=== PATIENT | female | born 1935 | race Caucasian/White ===

== ENCOUNTER 2016-11-09 04:55 | Inpatient (IN) | payer MEDICARE, OTHER ==
[~2016-11-09] VITALS: Ht 154.9 cm; Wt 70.2 kg
[2016-11-09] VITALS (13 sets, daily range): BP systolic 130–197; BP diastolic 51–86; PULSE 49–89; RESP 16–20; O2SAT 98–99
[~2016-11-09 04:55] MED LIST: ASPI81TA3 PO; ATOR40TA69 PO; HYDR25TA4 PO; LISI-571 PO; METO25TA99 PO; NITR0.4T SL; WARF5TAB7 PO
--- NOTE | 2016-11-09 05:04 | ED.REPORT ---
HPI-Chest Pain 40 and Over Date of Service Nov 09, 2016 ED Provider: Jose A Rivas MD Pt is a 81 year old female with a history of HTN, hyperlipidemia, and MS who presents to the ED via EMS complaining of intermittent chest pain onset 2 weeks ago. She c/o associated jaw pain, left arm pain, and sensation to a fast heart beat. She denies any other symptoms. The pt was provided 324 mg of aspirin and 2 sprays of nitro en route with relief. The pt reports that she is currently pain free. Per EMS, the pt's blood pressure was 220/110 on their arrival to her house. Nursing Notes Stated Complaint: CHEST PAIN Chief Complaint: Chest Pain Nursing Notes Reviewed: Yes Allergies: Coded Allergies: wool (Verified Allergy, Mild, rash, 11/09/16) Penicillins (Verified Allergy, Unknown, Rash, 11/09/16) clopidogrel bisulfate (Verified Allergy, Unknown, Diarrhea, 11/09/16) ezetimibe (Verified Allergy, Unknown, Diarrhea, 11/09/16) rosuvastatin calcium (Verified Allergy, Unknown, Diarrhea, 11/09/16) Uncoded Allergies: HYPERTENSION MEDS (Allergy, Unknown, 07/02/15) Scheduled Aspirin Chew (Aspirin Chew) 81 Mg Chew 81 MG PO DAILY Atorvastatin Calcium (Atorvastatin Calcium) 40 Mg Tablet 80 MG PO HS Lisinopril (Lisinopril) 5 Mg Tablet 2.5 MG PO DAILY Metoprolol Succinate ER (Metoprolol Succinate ER) 25 Mg Tab.er.24h 25 MG PO DAILY Warfarin Sodium (Warfarin Sodium) 5 Mg Tablet 5 MG PO DAILY Scheduled PRN Hydrochlorothiazide (Hydrochlorothiazide) 25 Mg Tablet 25 MG PO 3x/week PRN PRN Swelling of hands and feet Nitroglycerin SL (Nitrostat) 0.4 Mg Tab.subl 0.4 MG SL Q5MIN PRN PRN For Chest Pain General Time Seen by MD: 05:01 Chief Complaint Chest pain Hx Obtained From: Patient, EMS Arrived By: Ambulance Sudden in Onset?: No Onset Occurred: More than a week ago... (2 weeks) Symptom Duration: Intermittent Location: : Substernal Quality: Painful Radiation: : Does not radiate Severity: Current: No pain currently Severity: Maximum: Moderate Recent Healthcare: No recent doctor visit Similar Sx Previous: Yes Past Medical History Past Medical History 1. She is on Coumadin for CVA. Apparently, she does have some carotid artery stenosis. 2. She has had rectal bleeding and constipation in the past. 3. She has had previous flares of back pain. 4. AAA, which is being followed. 5. Osteoarthritis. 6. MS Reports: GERD, Hyperlipidemia, Hypertension Past Surgical History Oral Smoking History Current Every Day Smoker Social History Alcohol Use: "Social" Drug Use: Denies drug use Ambulatory Status Independent Review of Systems + Sensation to fast heart beat + jaw pain Constitutional: Denies: Fever Respiratory: Denies: Non-productive cough, Shortness of breath Cardiovascular: Reports: Chest pain Musculoskeletal: Reports: Extremity pain Complete sys rev & neg: except as marked. Physical Exam Initial Vital Signs Vital Signs (First) Date Time Temp Pulse Resp B/P Pulse Ox O2 Delivery O2 Flow Rate FiO2 11/09/16 04:57 37.0 68 20 130/59 98 Room Air Initial VS: Reviewed, Vital signs normal Head / Eyes: Atraumatic, Normocephalic Neck: Supple, Full range of motion Extremities: Vascular intact, Neuro intact Skin: Warm, Dry, No cyanosis Neurologic: Alert, Oriented, Nonfocal Psychiatric: Mood/affect normal, Behavior normal General/Constitutional: Awake, Alert Respiratory / Chest: Atraumatic, Breath sounds NL, Breath sounds = bilat Cardiovascular: Heart rate NL, Regular rhythm, Heart sounds NL Bilateral pitting edema Abdomen: Atraumatic, Soft Neck: Atraumatic, Full range of motion Bilateral carotid bruit - worse on right than left. Interpretation & Diagnostics Lab Results Interpretation Result Diagram: 11/09/16 0500 11/09/16 0500 Test 11/09/16 05:00 White Blood Count 7.1th/mm3 (3.8-10.1) Red Blood Count 3.24mil/mm3 (3.90-5.20) Hemoglobin 7.0g/dL (12.0-15.6) Hematocrit 23.3% (35.0-46.0) Mean Corpuscular Volume 71.9fL (81-100) Mean Corpuscular Hemoglobin 21.6pg (27.0-35.0) Mean Corpuscular Hemoglobin Concent 30.0% (32.0-37.0) Red Cell Distribution Width 16.7% (12.3-15.4) Platelet Count 356bil/L (150-400) Neutrophils (%) (Auto) 50.2% (40-74) Lymphocytes (%) (Auto) 37.6% (14-46) Monocytes (%) (Auto) 9.3% (4-12) Eosinophils (%) (Auto) 2.1% (0-5) Basophils (%) (Auto) 0.7% (0-3) Prothrombin Time 46.2sec (8.1-12.5) Prothromb Time International Ratio 4.19ratio Sodium Level 141mEq/L (134-144) Potassium Level 4.3mEq/L (3.5-5.2) Chloride Level 107mEq/L (97-108) Carbon Dioxide Level 16mmol/L (18-29) Blood Urea Nitrogen 21mg/dL (8-27) Creatinine 0.91mg/dL (0.57-1.00) Estimat Glomerular Filtration Rate 85mL/min (>59) Glucose Level 104mg/dL (60-99) Calcium Level 8.7mg/dL (8.5-10.1) Magnesium Level 2.1mg/dL (1.6-2.6) Total Bilirubin 0.5mg/dL (0.0-1.2) Aspartate Amino Transf (AST/SGOT) 11U/L (0-50) Alanine Aminotransferase (ALT/SGPT) 7U/L (0-32) Alkaline Phosphatase 109U/L (25-165) Troponin T 0.010ug/L (0.0-0.011) Total Protein 6.2g/dL (6.4-8.4) Albumin 3.9g/dL (3.4-5.0) ECG Interpretation ECG Interpretation: Sinus rhythm with a rate of 67 Time: 05:04 Interpreted by: ED physician X-Ray Chest Interpretation Chest Xray Interpretation: Normal View: Portable, 1 view Interpretation / Wet Read by: Wet read ED physician Re-Eval/Medical Decision Med Decision/Clinical Course 81-year-old female with a history of palpitations and chest discomfort with radiation up into her jaw and teeth. This has subsequently resolved with nitroglycerin. ER workup for chest pain is in process. The patient will be turned over at change of shift to the day doctor. Source of Hx: Old records Counseled Regarding: Diagnosis, Lab results Discharge & Departure Shift Change Sign-Out Patient Care Transferred: Yes Discussed Complaint(s): Yes Laboratory Evaluation: Lab evaluation discussed Discharge Condition All VS Reviewed: Yes Condition: Stable Referrals: Aliza Garcia MD (PCP) Care Transferred to: Dr. Sanchez Care Transferred at: 06:00 Scribe Attestation Portions of this note were transcribed by Iza Painting. I, Dr. Rivas personally performed the history, physical exam and medical decision-making; I reviewed and confirmed the accuracy of the information in the transcribed note. Signed by: Kimberli Calvo, 11/09/16. copies to: Aliza Garcia MD, Howard L MD Nov 09, 2016 05:04 Iza Bartholomew Nov 09, 2016 05:35
[2016-11-09 05:13] LABS: BASOPHILS % (AUTO) 0.7 % (0-3); EOSINOPHILS % (AUTO) 2.1 % (0-5); MONOCYTES % (AUTO) 9.3 % (4-12); Mean Corpuscular Hemoglobin 21.6 pg (27.0-35.0); Mean Corpuscular Volume 71.9 fL (81-100); NEUTROPHILS % (AUTO) 50.2 % (40-74); Platelet Count 356 bil/L (150-400)
[2016-11-09 05:33] LABS: INR 4.19 ratio
[2016-11-09 05:36] LABS: TROPONIN T 0.01 ug/L (0.0-0.011)
[2016-11-09 05:47] LABS: Magnesium 2.1 mg/dL (1.6-2.6)
[2016-11-09] MEDS ORDERED: Ondansetron 2 mg/mL 2 mL Inj IVPUSH PRN ×2 (07:25→10:55)
[2016-11-09] MEDS ORDERED: Alum-Mag Hydrox-Simeth 30 mL Suspension PO PRN ×2 (07:25→10:55)
[2016-11-09] MEDS ORDERED: LOSA50TA37 PO (07:40)
[2016-11-09] MEDS ORDERED: WARF5TAB7 PO (07:40)
[2016-11-09] MEDS ORDERED: ATOR40TA69 PO (07:43)
[2016-11-09] MEDS ORDERED: ACET-171 PO (08:04)
--- NOTE | 2016-11-09 08:11 | DRSVH ---
PROCEDURE: CT ABDOMEN AND PELVIS WITH CONTRAST ([id number]) INDICATIONS: abd pain on coumadin TECHNIQUE: After the administration of intravenous contrast, 5 mm thick sections acquired from the diaphragm to the symphysis. 5 mm coronal and sagittal reformats were acquired. For radiation dose reduction, the following was used: automated exposure control, adjustment of mA and/or kV according to patient siz e. COMPARISON: None. FINDINGS: Image quality: Excellent. ABDOMEN: Lung bases: Lung bases are clear. Heart size is normal. Solid organs: Liver and spleen are normal in size and enhancement. Gallbladder appears normal. Jermaine iary system is non dilated. Pancreas enhances normally. No adrenal nodules. Kidneys demonstrate no rmal size and enhancement, without hydronephrosis. There are scattered renal cortical cysts but no s olid mass lesion. Peritoneum and bowel: Bowel loops demonstrate normal wall thickness and caliber. No free fluid or a ir. Nodes and vessels: No retroperitoneal or mesenteric adenopathy by size criteria. The inferior vena cava is normal in size. There is ectasia of the abdominal aorta with aneurysmal dilatation of the mi ddle third of the aorta measuring up to 3.4 cm AP and 3.8 cm transverse. Additionally, the right com mon iliac artery measures up to 2 cm diameter. Miscellaneous: No ventral hernias. PELVIS: Genitourinary: Bladder wall thickness is normal. Miscellaneous: No inguinal hernias or adenopathy. Bones: No suspicious bony lesions. No vertebral body compression fractures. IMPRESSION: No hematoma found, no trauma identified. 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 There is no sign of associated di ssection or aneurysm leak. Dictated by: Syed Crow M.D. on 11/09/2016 at 8:06 Approved by: Syed rCow M.D. on 11/09/2016 at 8:10
[2016-11-09] MEDS ORDERED: METO25TA99 PO (08:40)
--- NOTE | 2016-11-09 09:51 | DRSVH ---
PROCEDURE: X-RAY CHEST ONE VIEW, PORTABLE ([id number]) INDICATIONS: CHEST PAIN TECHNIQUE: One view of the chest was acquired. COMPARISON: [facility], CR, XR CHEST 1VW (PORTABLE), 07/02/2015, 19:36. FINDINGS: Surgical changes and devices: None. Lungs and pleura: No pleural effusions or pneumothorax. Lungs are clear. Mediastinum: Mediastinal contours appear normal. Heart size is normal. Bones and chest wall: No suspicious bony lesions. Overlying soft tissues appear unremarkable. IMPRESSION: No acute cardiopulmonary disease. Dictated by: Rikki Forrest [facility] Interpreted: Tree Ding MD on 11/09/2016 at 8:39 Approved by: Tree Ding M.D. on 11/09/2016 at 9:50
--- NOTE | 2016-11-09 10:27 | NUR ---
Admission Pt arrived from ED on stretcher. Able to transfer herself from stretcher to bed with SBA. Up to scale afterwards and she was lightheaded and dizzy with standing. Stable on her feet, SBA back to bed. HR 57 apical, few irregular beats auscultated. BP 189/86. PIV infiltrated, removed and new PIV placed. No skin issues on admit. Denies chest pain and SOB currently.
[2016-11-09] MEDS ORDERED: Polyethylene Glycol (PEG) 17 Gm Powder PO PRN (10:55)
[2016-11-09] MEDS: 0.9% Sodium Chloride 250 ML IV SCH (12:33)
--- NOTE | 2016-11-09 14:35 | PCM.HPMED ---
Subjective Date of Service Nov 09, 2016 Primary Provider: Admitting Physician: Channing Landeros MD Primary Care Physician: Aliza Garcia MD Attending Physician: Jose Juan Lucia MD Admit Status: From the Emergency Department, Full Admit, [facility] Telemetry Chief Complaint: Chest pressure, and palpitations. History of Present Illness: This is an 81-year-old female presents with a three-week history of progressive dyspnea and chest tightness on exertion. She notes that this is then relieved by rest. She has had no associated nausea, vomiting or diaphoresis. She does have a known history of CAD with an abnormal echo in June 2015 revealing an EF of 35-40% with apical hypokinesis. Coronary angiogram at that time indicated triple vessel disease not amenable to bypass. Specifically she had a 30% left main lesion, a 40% LAD lesion, 90% first diagonal lesion, 50% circumflex lesion , and a 90% second obtuse marginal lesion. She had a completely occluded RCA, and was right side dominant. She was seen in the emergency department and found to have a hemoglobin of 7. She had brown and occult positive stool. She denies recent rectal bleeding but notes that she does not really look at her stool. No report of melena or bright red blood per rectum. She has had increased heartburn recently and some epigastric abdominal pain. She denies any nausea at this time. No orthopnea or pedal edema. Nothing other than exertion increases her symptoms of rest improves it. She denies any radiation of pain to the neck. This causes a chest tightness or pressure but not pain. She also describes a hard thumping of her heart but no palpitations. Review of Systems: She denies difficulty urinating. No abdominal pain or distention. No recent rhinorrhea or cough or sore throat. All else reviewed and otherwise negative except as noted in history of present illness. Allergies Coded Allergies: wool (Verified Allergy, Mild, rash, 11/09/16) Penicillins (Verified Allergy, Unknown, Rash, 11/09/16) clopidogrel bisulfate (Verified Allergy, Unknown, Diarrhea, 11/09/16) ezetimibe (Verified Allergy, Unknown, Diarrhea, 11/09/16) rosuvastatin calcium (Verified Allergy, Unknown, Diarrhea, 11/09/16) Uncoded Allergies: HYPERTENSION MEDS (Allergy, Unknown, 07/02/15) Home Medications Aspirin Chew (Aspirin Chew) 81 Mg Chew 81 MG PO DAILY Atorvastatin Calcium (Atorvastatin Calcium) 40 Mg Tablet 80 MG PO HS Lisinopril (Lisinopril) 5 Mg Tablet 2.5 MG PO DAILY Metoprolol Succinate ER (Metoprolol Succinate ER) 25 Mg Tab.er.24h 25 MG PO DAILY Warfarin Sodium (Warfarin Sodium) 5 Mg Tablet 5 MG PO DAILY Scheduled PRN Hydrochlorothiazide (Hydrochlorothiazide) 25 Mg Tablet 25 MG PO 3x/week PRN PRN Swelling of hands and feet Nitroglycerin SL (Nitrostat) 0.4 Mg Tab.subl 0.4 MG SL Q5MIN PRN PRN For Chest Pain PMH Coronary artery disease, triple vessel with medical therapy recommended based on last angiogram Chronic systolic heart failure with EF 40% Essential hypertension Hyperlipidemia Remote CVA, on chronic Coumadin Aortic abdominal aneurysm, being followed Intermittent chronic lower back pain. Gastroesophageal reflux Family History Negative for heart attack. Her father at age 48 from a traumatic injury. All other family members tend to live into their 90s. Social History Occupation: retired Hx Alcohol Use: No Hx Substance Use: No Hx Tobacco Use: Yes Smoking Status: Current Every Day Smoker Living Arrangement: with Family Exam Vital Signs Vital Sign - Last Date Time Temp Pulse Resp B/P Pulse Ox O2 Delivery O2 Flow Rate FiO2 11/09/16 13:39 36.9 56 16 183/51 11/09/16 09:22 99 Room Air Exam Oriented 3. No distress. Fluent speech. Normal affect. Normal skull. Normal nose and ears. Anicteric sclera, symmetric pupils Oropharynx is unremarkable, no facial droop. Neck is supple, normal thyroid. No adenopathy. Lungs are clear, normal effort rate. Heart is regular without murmur gallop or rub. Abdomen soft, nondistended or tender. Extremities are free of pedal edema. Good radial and pedal pulses. Skin is free of rash, lesions. No petechiae or ecchymosis. Joints are grossly normal. Cranial nerves are grossly normal. Motor strength is normal in all extremities. Normal muscular tone. Lab and Diagnostics Result Diagram: 11/09/16 0500 11/09/16 0500 X-Rays, CTs and MRIs PROCEDURE: CT ABDOMEN AND PELVIS WITH CONTRAST ([id number]) INDICATIONS: abd pain on coumadin TECHNIQUE: After the administration of intravenous contrast, 5 mm thick sections acquired from the diaphragm to the symphysis. 5 mm coronal and sagittal reformats were acquired. For radiation dose reduction, the following was used: automated exposure control, adjustment of mA and/or kV according to patient size. COMPARISON: None. FINDINGS: Image quality: Excellent. ABDOMEN: Lung bases: Lung bases are clear. Heart size is normal. Solid organs: Liver and spleen are normal in size and enhancement. Gallbladder appears normal. Biliary system is non dilated. Pancreas enhances normally. No adrenal nodules. Kidneys demonstrate normal size and enhancement , without hydronephrosis. There are scattered renal cortical cysts but no solid mass lesion. Peritoneum and bowel: Bowel loops demonstrate normal wall thickness and caliber. No free fluid or air. Nodes and vessels: No retroperitoneal or mesenteric adenopathy by size criteria. The inferior vena cava is normal in size. There is ectasia of the abdominal aorta with aneurysmal dilatation of the middle third of the aorta measuring up to 3.4 cm AP and 3.8 cm transverse. Additionally, the right common iliac artery measures up to 2 cm diameter. Miscellaneous: No ventral hernias. PELVIS: Genitourinary: Bladder wall thickness is normal. Miscellaneous: No inguinal hernias or adenopathy. Bones: No suspicious bony lesions. No vertebral body compression fractures. IMPRESSION: No hematoma found, no trauma identified. 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 There is no sign of associated dissection or aneurysm leak. Dictated by: Syed Crow M.D. on 11/09/2016 at 8:06 Approved by: Syed Crow M.D. on 11/09/2016 at 8:10 PROCEDURE: X-RAY CHEST ONE VIEW, PORTABLE ([id number]) INDICATIONS: CHEST PAIN TECHNIQUE: One view of the chest was acquired. COMPARISON: [facility], CR, XR CHEST 1VW (PORTABLE), 07/02/2015, 19: 36. FINDINGS: Surgical changes and devices: None. Lungs and pleura: No pleural effusions or pneumothorax. Lungs are clear. Mediastinum: Mediastinal contours appear normal. Heart size is normal. Bones and chest wall: No suspicious bony lesions. Overlying soft tissues appear unremarkable. IMPRESSION: No acute cardiopulmonary disease. Dictated by: Rikki Forrest [facility] Interpreted: Tree Ding MD on 11/09/2016 at 8:39 Approved by: Tree Ding M.D. on 11/09/2016 at 9:50 12-lead ECG NSR 67, poor progression. Inferior Q. No ST changes. Assessment & Plan #. Acute blood loss anemia, POA and active. It seems likely that she is having a subacute GI bleed. At this point we will place her on PPI IV twice a day and transfuse her 1 unit of packed red blood cells given her chest discomfort symptoms. She also has known triple-vessel coronary disease. We will continue her usual cardioprotective regimen and consult gastroenterology for upper endoscopy to rule out occult gastric source of GI bleed and blood loss anemia. #. Presumed subacute upper gastrointestinal bleed, POA and active. We will place her on a Protonix IV twice a day regimen and consult gastroenterology as outlined. #. Chest pressure, POA and active. She does have known triple-vessel coronary disease with a history of chronic systolic heart failure and myocardial infarction. The plan will be to continue continue her cardioprotective regimen with aspirin and beta-blockade and increase her hemoglobin substantially to improve her symptomatically. #. Essential hypertension, POA and active. We will resume usual medications and use labetalol when necessary for systolic blood pressure over 170. #. Chronic systolic heart failure, POA and active. She is currently compensated we will follow her fluid status carefully especially in lieu of her pending blood transfusion. She is full resuscitation, this was confirmed today. She is admitted inpatient status with anticipated length of stay over 2 nights Pain Evaluation: Adequate Pain Control Resuscitation Status: CPR: Attempt Resuscitation Time spent 40 minutes Jose Juan Lucia MD Nov 09, 2016 14:35
[2016-11-09] MEDS ORDERED: MeTOProlol XL 25 mg ER24 Tablet PO SCH (14:50)
[2016-11-09] MEDS ORDERED: Pantoprazole 4 mg/mL 10 mL Inj IVPUSH SCH (16:30)
[2016-11-09] MEDS: Pantoprazole 40 mg ER24 Tablet PO SCH (17:31)
--- NOTE | 2016-11-09 17:52 | NUR ---
PRBC transfusion and anxiety Pt received PRBC transfusion, 1 unit. Tolerated well. no S/Sx of reaction. BP elevated throughout but HR maintained around 47-52 with PAC (on tele). Pt slightly nauseated prior to transfusion, medicated with zofran for relief of nausea. repeat H/H this evening. Pt very anxious during shift. Lots of questions re: receiving blood transfusion and also medications. Supportive listening provided, and all questions answered for pt.
--- NOTE | 2016-11-09 21:36 | CONS ---
[address] [address] CONSULTATION REPORT PATIENT: SOPHIE SCOTT : 1935 MR#: [id number] ADMIT: 11/09/2016 JOB ID: [id number] DATE OF SERVICE: REASON FOR CONSULTATION: Symptomatic anemia. PHYSICIAN REQUESTING CONSULTATION: Jose Juan Lucia MD. HISTORY OF PRESENTING ILLNESS: The patient is an 81-year-old woman who presents with a three-week complaint of dyspnea which has been getting progressively worse in nature. There was also some chest pressure associated with exertion. In the emergency department, she was noted to be anemic with a hemoglobin of 7 and hematocrit of 23.3. Her last hemoglobin that I am able to find on [facility]Gen is from May 20, 2015, and at that time, her hemoglobin was 13.7 and hematocrit of 27.8. She reports she has had no prior endoscopies, even colonoscopy or barium enemas. She states that she has not had any change in her bowel habits and has not particularly looked at her stool to see if there has been any blood or she has had black tarry stool. She denies any chronic NSAID use other than 81 mg aspirin daily. She denies any nausea, vomiting, abdominal pain, fevers, chills, sweats or change in bowel habits. Additionally, she is on Coumadin for history of remote CVA. She also does have a history of an abdominal aortic aneurysm, She has no GI complaints. She does have significant coronary artery disease. She has had an abnormal echo back in June 2015 revealing an EF of 35% to 40% with apical hypokinesis. Coronary angiogram at that time indicated triple-vessel disease. PAST MEDICAL HISTORY: Significant for coronary artery disease, essential hypertension, hyperlipidemia, history of CVA, abdominal aortic aneurysm, gastroesophageal reflux. PAST SURGICAL HISTORY: None. FAMILY HISTORY: Significant for a son who has Crohn disease and was recently at our institution and underwent an ileostomy. Otherwise, he denies any family history of colon cancer or any liver disease. SOCIAL HISTORY: She is retired. She lives at home with her son. She does smoke daily. Denies any alcohol abuse. HOME MEDICATIONS: Include: 1. 81 mg aspirin. 2. Atorvastatin. 3. Lisinopril. 4. Metoprolol. 5. Warfarin. ALLERGIES: 1. CLOPIDOGREL. 2. EZETIMIBE. 3. ROSUVASTATIN. 4. PENICILLIN. 5. WOOL. REVIEW OF SYSTEMS: Her 10-point review of systems is negative except as mentioned in the HPI. PHYSICAL EXAMINATION: Her temperature is 37.1. Her pulse is 52. Blood pressure is 183/74. Respiratory rate is 16. O2 saturation is 99% on room air. Generally, she is an elderly-appearing woman who appears younger than her stated age. She is in no apparent distress. She answers questions appropriately. HEENT: She has some mild pallor. There is no icterus. Oropharynx is clear. Chest exam is clear. Cardiovascular exam: S1, S2 heard. Abdomen is soft, nontender, nondistended. Bowel sounds appreciated. Extremities with trace edema. LABORATORY DATA: Shows a white blood cell count of 7.1, hemoglobin of 7, hematocrit 23.3, platelet count of 356 with an MCV of 71.9. PT is 46.2. INR is 4.19. Sodium 141, potassium 4.3, chloride of 107, CO2 of 16, BUN of 21, creatinine of 0.9, glucose of 104. Lactic acid is 0.9. Her calcium is 8.7. Magnesium 2.1. Total bili 0.5. AST is 11, ALT is 7, alkaline phosphatase is 109. Her troponins, three sets, are 0.010. Total protein 6.2, and albumin is 3.9. CT scan of the abdomen shows liver and spleen are normal in size and enhancement. Gallbladder appears normal. Biliary system is nondilated. Pancreas enhances normally. Bowel loops demonstrate normal wall thickness and caliber. No free fluid or air. She does have an abdominal aortic aneurysm in the middle third of the aorta, measuring up to 3.4 cm in AP diameter and 3.8 cm in transverse diameter. ASSESSMENT/PLAN: An 81-year-old woman, with significant coronary artery disease, who is on warfarin and presenting with symptomatic anemia. As her stool guaiac has been reported positive, I believe she is having occult bleeding, and with her taking aspirin, peptic ulcer disease is a possible etiology. Therefore, would recommend that she be on PPI b.i.d. and EGD to evaluate. Additionally, considering her age and no prior history of colon cancer screening, colon malignancy is also a possibility, and if upper endoscopy is negative, would recommend a colonoscopy. I had a long discussion with the patient, and patient, at this time, prefers to have noninvasive testing for evaluation of anemia, and therefore, she declined upper endoscopy and prefers to have x-ray studies. I explained to her that this would be barium studies of the upper GI and a barium enema if upper study is negative, and therefore, she is agreeable to proceeding with barium studies and not endoscopic evaluation. I believe with her INR being elevated, do not see a need for us to reverse this urgently and therefore could let her INR drift down slowly. In the meantime, will plan for her to get an upper GI barium study, and if that is negative, to proceed with a barium enema. The risks, benefits, and limitations of barium studies were discussed with the patient and she wishes to proceed with the above. I would continue to follow H and H closely, and transfuse blood products as needed. Thank you for allowing me to participate the patient's care. If you should have any further questions, please do not hesitate to contact me. BRAD
[2016-11-09] MEDS ORDERED: Enalaprilat 1.25 mg/mL 2 mL Inj IVPUSH ONE (21:40)
--- NOTE | 2016-11-09 21:50 | NUR ---
Lipitor Pt concerned about Lipitor and thought that "someone" had said she should not take this while down in ED. Pt did not want to take this med for that reason, aware and okay with nonadmin of tonight's dose.
--- NOTE | 2016-11-09 22:42 | NUR ---
HTN/HR/H&H Pt hypertensive w/ SBP 170s-180s, HR high 40s- low 50s, MD notified of findings as well as ordered metoprolol dose for morning. MD ordered one time Vasotec dose w/ goal SBP to be <170. SBP 140s when rechecked post intervention, will continue to monitor. Pt appears to be sleeping comfortably at this time. Noted very minimal increase in H&H post PRBC unit from day. No stools noted or reported since ED documentation. Pt denies emesis. Did note small red streaks on tissue paper after pt wipes, nothing seen to actively bleed when checked. MD notified. Order put in to recheck H&H around midnight. Ongoing Care
[2016-11-10] VITALS (16 sets, daily range): BP systolic 119–197; BP diastolic 57–87; PULSE 42–53; RESP 16–22; O2SAT 95–99
[2016-11-10] MEDS ORDERED: Furosemide 10 mg/mL 2 mL Inj IVPUSH ONE (02:00)
[2016-11-10] MEDS: 0.9% Sodium Chloride 250 ML IV SCH ×3 (02:30→11:15)
--- NOTE | 2016-11-10 06:44 | NUR ---
Transfusion Blood available after 0200, pt tolerated 1st transfusion well, no new symptoms reported and vitals stable. SBP change from 119 (15 min into transfusion) to 160s at end of transfusion. Lasix given post first transfusion per orders. MD notified of change in BP.
--- NOTE | 2016-11-10 11:00 | NUR ---
Social Work: Initial Assessment/Multidisciplinary Rounds D: Per EMR review, pt is an 81 year old female admitted for chest pain/anemia. Pt is Medicare with [facility]; pt has no LTC or VA benefits. PCP is Aliza Garcia MD. NOK is Pepe Ellison, son, . Pt declined AD information and states she has not completed these. Readmit score is high, 3/8. Pt discussed in multidisciplinary rounds; the patient is on day 1 of stay and is being followed by GI. Capacity for self-care has not been fully assessed at this time. 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 HEALTH AND SAFETY ADVISOR met with the patient at bedside. Sw role explained, contact information and d/c planning checklist provided. See initial assessment. Pt confirms that she lives in a mobile home in [place] with 6 steps to enter. Pt states that she uses a cane at baseline and continues to drive. She states that she is I with ADLs but believes she will need some extra help in the way of chores when she leaves. She confirms that she is helping her son who had surgery recently. HEALTH AND SAFETY ADVISOR informed her that insurance will not pay for an attendant at home for chores and long term means and she would need to pay privately for these services. Pt declined to have HEALTH AND SAFETY ADVISOR assist her with this. Pt states that several years ago she had HH through [facility]. She does not have a preference for HH Companies in the future now that [facility] no longer does home health. HH CHOICE LIST PROVIDED/ The patient is requesting information about applying for social security and disability benefits for her son. HEALTH AND SAFETY ADVISOR provided her with the [employer] contact information along with general information about the local Social Security Department. She understands that unless she is the patient's DPOA she will likely not be able to do these things for him. A: Pt who is I at baseline P: Evolving; HEALTH AND SAFETY ADVISOR to continue to follow to assess pt's discharge needs and rule out possibility for home health. ANUSHKA Chavez Addendum: 11/10/16 at 1113 by IRIS JULIO SS Amended: Links added.
--- NOTE | 2016-11-10 12:08 | PCM.PNMED ---
Subjective Date of Service Nov 10, 2016 Subjective Patient denies any nausea vomiting or abdominal pain. She does admit to still feeling weak. She is currently getting a unit of packed red blood cells. Exam Vital Signs Vital Sign - Last Date Time Temp Pulse Resp B/P Pulse Ox O2 Delivery O2 Flow Rate FiO2 11/10/16 10:15 150/76 11/10/16 10:13 36.8 47 16 11/10/16 09:15 97 Room Air Intake and Output 11/09/16 11/09/16 11/10/16 Cumulative From/Thru 15:00 23:00 07:00 11/09/16 04:57 - 11/10/16 06:47 Intake Total 640 ml 700 ml 1340 ml Output Total 400 ml 400 ml Balance 240 ml 700 ml 940 ml Intake Oral 240 ml 240 ml IV Total 400 ml 400 ml 800 ml Packed Cells 300 ml 300 ml Output Urine Total 400 ml 400 ml Exam Constitutional: Elderly female in no acute distress Head: Normocephalic hematocrit Chest: Clear to auscultation Cor: Regular rate and rhythm S1-S2 without murmur Abdomen: Soft nontender bowel sounds present Extremities: No pedal edema Skin: No rashes Neuro: Alert and oriented 3, motor strength is intact bilaterally IVs and Medications Medications Reviewed: Medications were reviewed in detail Lab and Diagnostics Laboratory Tests 72 Hours Test 11/09/16 05:00 11/09/16 07:20 11/09/16 07:40 11/09/16 11:00 White Blood Count 7.1th/mm3 (3.8-10.1) Red Blood Count 3.24mil/mm3 (3.90-5.20) Hemoglobin 7.0g/dL (12.0-15.6) Hematocrit 23.3% (35.0-46.0) Mean Corpuscular Volume 71.9fL (81-100) Mean Corpuscular Hemoglobin 21.6pg (27.0-35.0) Mean Corpuscular Hemoglobin Concent 30.0% (32.0-37.0) Red Cell Distribution Width 16.7% (12.3-15.4) Platelet Count 356bil/L (150-400) Neutrophils (%) (Auto) 50.2% (40-74) Lymphocytes (%) (Auto) 37.6% (14-46) Monocytes (%) (Auto) 9.3% (4-12) Eosinophils (%) (Auto) 2.1% (0-5) Basophils (%) (Auto) 0.7% (0-3) Prothrombin Time 46.2sec (8.1-12.5) Prothromb Time International Ratio 4.19ratio Sodium Level 141mEq/L (134-144) Potassium Level 4.3mEq/L (3.5-5.2) Chloride Level 107mEq/L (97-108) Carbon Dioxide Level 16mmol/L (18-29) Blood Urea Nitrogen 21mg/dL (8-27) Creatinine 0.91mg/dL (0.57-1.00) Estimat Glomerular Filtration Rate 85mL/min (>59) Glucose Level 104mg/dL (60-99) Calcium Level 8.7mg/dL (8.5-10.1) Magnesium Level 2.1mg/dL (1.6-2.6) Total Bilirubin 0.5mg/dL (0.0-1.2) Aspartate Amino Transf (AST/SGOT) 11U/L (0-50) Alanine Aminotransferase (ALT/SGPT) 7U/L (0-32) Alkaline Phosphatase 109U/L (25-165) Troponin T 0.010ug/L (0.0-0.011) 0.010ug/L (0.0-0.011) 0.010ug/L (0.0-0.011) Total Protein 6.2g/dL (6.4-8.4) Albumin 3.9g/dL (3.4-5.0) Lactic Acid Level 0.9mmol/L (0.4-2.0) Test 11/09/16 18:12 11/10/16 00:06 Hemoglobin 7.3g/dL (12.0-15.6) 6.8g/dL (12.0-15.6) Hematocrit 24.0% (35.0-46.0) 22.6% (35.0-46.0) Result Diagram: 11/10/16 0006 11/09/16 0500 X-Rays, CTs and MRIs PROCEDURE: CT ABDOMEN AND PELVIS WITH CONTRAST ([id number]) INDICATIONS: abd pain on coumadin TECHNIQUE: After the administration of intravenous contrast, 5 mm thick sections acquired from the diaphragm to the symphysis. 5 mm coronal and sagittal reformats were acquired. For radiation dose reduction, the following was used: automated exposure control, adjustment of mA and/or kV according to patient size. COMPARISON: None. FINDINGS: Image quality: Excellent. ABDOMEN: Lung bases: Lung bases are clear. Heart size is normal. Solid organs: Liver and spleen are normal in size and enhancement. Gallbladder appears normal. Biliary system is non dilated. Pancreas enhances normally. No adrenal nodules. Kidneys demonstrate normal size and enhancement , without hydronephrosis. There are scattered renal cortical cysts but no solid mass lesion. Peritoneum and bowel: Bowel loops demonstrate normal wall thickness and caliber. No free fluid or air. Nodes and vessels: No retroperitoneal or mesenteric adenopathy by size criteria. The inferior vena cava is normal in size. There is ectasia of the abdominal aorta with aneurysmal dilatation of the middle third of the aorta measuring up to 3.4 cm AP and 3.8 cm transverse. Additionally, the right common iliac artery measures up to 2 cm diameter. Miscellaneous: No ventral hernias. PELVIS: Genitourinary: Bladder wall thickness is normal. Miscellaneous: No inguinal hernias or adenopathy. Bones: No suspicious bony lesions. No vertebral body compression fractures. IMPRESSION: No hematoma found, no trauma identified. 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 There is no sign of associated dissection or aneurysm leak. Dictated by: Syed Crow M.D. on 11/09/2016 at 8:06 Approved by: Syed Crow M.D. on 11/09/2016 at 8:10 PROCEDURE: X-RAY CHEST ONE VIEW, PORTABLE ([id number]) INDICATIONS: CHEST PAIN TECHNIQUE: One view of the chest was acquired. COMPARISON: [facility], CR, XR CHEST 1VW (PORTABLE), 07/02/2015, 19: 36. FINDINGS: Surgical changes and devices: None. Lungs and pleura: No pleural effusions or pneumothorax. Lungs are clear. Mediastinum: Mediastinal contours appear normal. Heart size is normal. Bones and chest wall: No suspicious bony lesions. Overlying soft tissues appear unremarkable. IMPRESSION: No acute cardiopulmonary disease. Dictated by: Rikki Forrest [facility] Interpreted: Tree Ding MD on 11/09/2016 at 8:39 Approved by: Tree Ding M.D. on 11/09/2016 at 9:50 12-lead ECG NSR 67, poor progression. Inferior Q. No ST changes. Cardiac Echo Impressions Name: SOPHIE SCOTT MStudy Yuan e: 01/24/2016 Height: 60 in Hospital Exam [facility] Weight: 158 lb Gender: Female BSA: 1.7 m2 : 1935 Age: 80 yrs BP: 175/92 mmHg Reason For Study: Cardiomyopathy, Ischemic Ordering Physician: Performed By: Jovi Simpson Interpretation Summary Left ventricular systolic function is normal without focal wall motion abnormalities with the ejection fraction visually estimated to be 65-70% with resolution of the previously seen apical wall motion abnormality. Compared to the prior exam, left ventricular function has significantly improved. There is mild-moderate concentric left ventricular hypertrophy and diastolic parameters indicating a relaxation abnormality of the left ventricle, consistent with normal filling pressures. The right ventricle grossly appears normal in size with probable normal systolic function and likely unchanged compared to the previous study. The right ventricular systolic pressure is estimated at least 27 mmHg assuming a right atrial pressure of 3 mm Hg. The atria are not well visualized but grossly appear normal in size. There is mild to moderate mitral regurgitation that is unchanged compared to the previous study, and mild aortic valve sclerosis without hemodynamically significant aortic stenosis. There is no other significant valvular heart disease. The ascending aorta is moderately enlarged. The patient was in sinus bradycardia with heart rates between 42-48 bpm during the exam. Assessment & Plan #. Acute blood loss anemia, POA and active. It seems likely that she is having a subacute GI bleed. At this point we will place her on PPI IV twice a day and transfuse her 1 unit of packed red blood cells given her chest discomfort symptoms. She also has known triple-vessel coronary disease. We will continue her usual cardioprotective regimen and consult gastroenterology for upper endoscopy to rule out occult gastric source of GI bleed and blood loss anemia. -Gastroenterology saw the patient and she wishes not to have an EGD so we will proceed with barium swallow to evaluate upper GI series -Continue to monitor serial hematocrits #. Presumed subacute upper gastrointestinal bleed, POA and active. We will place her on a Protonix IV twice a day regimen and consult gastroenterology as outlined. Continue with IV Protonix twice a day for now. #Sinus bradycardia, present on admission, chronic -She is dipping down into the 40s so we will go ahead and DC her metoprolol. -This was documented on previous echocardiogram exam also. #. Chest pressure, POA and active. She does have known triple-vessel coronary disease with a history of chronic systolic heart failure and myocardial infarction. The plan will be to continue continue her cardioprotective regimen with aspirin and beta-blockade and increase her hemoglobin substantially to improve her symptomatically. #. Essential hypertension, POA and active. We will resume usual medications and use labetalol when necessary for systolic blood pressure over 170. #. Chronic systolic heart failure, POA and active. She is currently compensated we will follow her fluid status carefully especially in lieu of her pending blood transfusion. # CODE STATUS -Full code She is admitted inpatient status with anticipated length of stay over 2 nights GI Prophylaxis: Proton Pump Inhibitor VTE Prophylaxis: SCDs Resuscitation Status: CPR: Attempt Resuscitation Time spent 30 minutes Farzana Reina MD Nov 10, 2016 12:08
[2016-11-10 12:49] LABS: BASOPHILS % (AUTO) 0.9 % (0-3); EOSINOPHILS % (AUTO) 1.8 % (0-5); MONOCYTES % (AUTO) 9.3 % (4-12); Mean Corpuscular Hemoglobin 24.7 pg (27.0-35.0); Mean Corpuscular Volume 75.1 fL (81-100); NEUTROPHILS % (AUTO) 65.2 % (40-74); Platelet Count 287 bil/L (150-400)
[2016-11-10] MEDS: Pantoprazole 40 mg ER24 Tablet PO SCH ×2 (13:01→17:20)
[2016-11-10 13:03] LABS: INR 2.43 ratio
--- NOTE | 2016-11-10 16:29 | DRSVH ---
PROCEDURE: X-RAY UPPER GI WITH BARIUM, AIR CONTRAST AND SMALL BOWEL FOLLOW-THROUGH ([id number]) INDICATIONS: microcytic anemia COMPARISON: [facility], CT, CT ABD PELVIS W CON, 11/09/2016, 7:42. [facility], CR, SPINE LUMB 1VW, 08/10/2012, 10:41. FINDINGS: KUB: Preprocedural sheet metal erector film shows a normal bowel gas pattern. No suspicious abdominal calcificati ons. Visualized solid organ contours appear normal in size. No suspicious bony abnormalities. Athe rosclerotic and mildly aneurysmal change of the distal aorta redemonstrated. Esophagus: Air-contrast views demonstrate a normal mucosal pattern. On single-contrast views, there is normal peristalsis. No fixed strictures, extrinsic mass effects, or diverticula. No hiatal rita ias or elicited gastroesophageal reflux. There is normal transit of a calibrated barium tablet throu gh the esophagus. The attending physician was personally present in the room during the examination. Stomach: The gastric lumen is normally distensible, and has normal rugal fold thickness. No mucosal masses or ulcers. The pylorus and duodenal bulb have a normal morphology. Small bowel: Duodenal folds appear normal in thickness. There is normal transit time of barium thro ugh the small intestine. Small bowel loops appear normal in caliber throughout. Jejunal and ileal f olds are smooth and normal in thickness. No strictures, intraluminal masses, or extrinsic mass effec ts. The terminal ileum is identified and appears normal. IMPRESSION: Normal upper GI series and small bowel follow-through. No source for anemia identified radiographica lly. Atherosclerotic and mild aneurysmal change of the descending aorta redemonstrated. Dictated by: Rikki Forrest RRA Interpreted: Candis Fritz MD on 11/10/2016 at 15:27 Approved by: Candis Fritz MD, PhD on 11/10/2016 at 15:57
--- NOTE | 2016-11-10 16:56 | NUR ---
Barium Swallow 0745 - Spoke to Dion from x-ray and gave him a report on the patient in preparation for her Barium Swallow today. 0945 - Discussed her care with Dr. Reina and the rest of the multidisciplinary care team during morning rounds. Informed Dr. Reina that her telemetry was showing sinus kimberly in the 40s and asked if she wanted her Metoprolol to be discontinued. She said yes and it was discontinued. Also, informed her that the patient's allergies showed allergies to all hypertensive medications, but that the patient had been unable to tell which reactions she had to which medications. This information was acknowledged. 1038 - She was taken via wheelchair and transporter to get her Barium Swallow completed. The Risk Adjustment Specialist was notified. 1219 - Jeronimo from x-ray called to give report. 1221 - She returned to [facility] and was settled back into her room. 1237 - Paged Dr. Reina about her diet and she said the patient could be on a full liquid diet now. She ate some cream of chicken soup for her lunch. Care continues.
[2016-11-11] VITALS (11 sets, daily range): BP systolic 178–226; BP diastolic 71–106; PULSE 45–70; RESP 16–24; O2SAT 96–98
--- NOTE | 2016-11-11 04:01 | NUR ---
Tele/Room air, Pt is ready to go home, A&O x3 using call light appropriately, SL. Room Air. has been very interested in what medication she will be discharged with, was advised by RN that discharge will make the decision about prescriptions . Tele Sinus Earl, 45-55. Addendum: 11/11/16 at 0616 by GERMAN GARCIA RN BP-178/71, notified Resident , gave Vasotec IV 2.5 Mg, pt had questions about the choice of medication and who made the decision, wanted to talk to the Dr. GARRIDO told her he would pass on the request
[2016-11-11 04:12] LABS: BASOPHILS % (AUTO) 0.6 % (0-3); EOSINOPHILS % (AUTO) 2.9 % (0-5); MONOCYTES % (AUTO) 10.2 % (4-12); Mean Corpuscular Hemoglobin 24.4 pg (27.0-35.0); Mean Corpuscular Volume 75.6 fL (81-100); NEUTROPHILS % (AUTO) 57.6 % (40-74); Platelet Count 272 bil/L (150-400)
[2016-11-11] MEDS ORDERED: Enalaprilat 1.25 mg/mL 2 mL Inj IVPUSH ONE (04:40)
[2016-11-11] MEDS: Pantoprazole 40 mg ER24 Tablet PO SCH ×2 (10:12→16:26)
[2016-11-11] MEDS: 0.9% Sodium Chloride 250 ML IV SCH (11:15)
--- NOTE | 2016-11-11 12:28 | PCM.PNMED ---
Subjective Date of Service Nov 11, 2016 Subjective Patient noted some pinkish streaking of her stool overnight. Has no abdominal pain nausea or vomiting. Did have an upper GI series with small bowel follow- through which did not reveal any abnormalities. Exam Vital Signs Vital Sign - Last Date Time Temp Pulse Resp B/P Pulse Ox O2 Delivery O2 Flow Rate FiO2 11/11/16 10:06 36.7 11/11/16 10:05 16 201/81 97 Room Air 11/11/16 09:10 46 Intake and Output 11/10/16 11/10/16 11/11/16 Cumulative From/Thru 15:00 23:00 07:00 11/09/16 04:57 - 11/11/16 06:29 Intake Total 702 ml 480 ml 100 ml 2622 ml Output Total 600 ml 1750 ml 1000 ml 3750 ml Balance 102 ml -1270 ml -900 ml -1128 ml Intake Oral 320 ml 480 ml 100 ml 1140 ml IV Total 82 ml 882 ml Packed Cells 300 ml 600 ml Output Urine Total 600 ml 1750 ml 1000 ml 3750 ml # Bowel Movements 2 2 Exam Constitutional: Elderly female in no acute distress Head: Normocephalic atraumatic Chest: Clear to auscultation Cor: Regular rate and rhythm S1-S2 Abdomen: Soft nontender bowel sounds present Extremities: No pedal edema Neuro: Alert and oriented 3, motor strength is intact bilaterally IVs and Medications Medications Reviewed: Medications were reviewed in detail Lab and Diagnostics Laboratory Tests 72 Hours Test 11/09/16 05:00 11/09/16 07:20 11/09/16 07:40 11/09/16 11:00 White Blood Count 7.1th/mm3 (3.8-10.1) Red Blood Count 3.24mil/mm3 (3.90-5.20) Hemoglobin 7.0g/dL (12.0-15.6) Hematocrit 23.3% (35.0-46.0) Mean Corpuscular Volume 71.9fL (81-100) Mean Corpuscular Hemoglobin 21.6pg (27.0-35.0) Mean Corpuscular Hemoglobin Concent 30.0% (32.0-37.0) Red Cell Distribution Width 16.7% (12.3-15.4) Platelet Count 356bil/L (150-400) Neutrophils (%) (Auto) 50.2% (40-74) Lymphocytes (%) (Auto) 37.6% (14-46) Monocytes (%) (Auto) 9.3% (4-12) Eosinophils (%) (Auto) 2.1% (0-5) Basophils (%) (Auto) 0.7% (0-3) Prothrombin Time 46.2sec (8.1-12.5) Prothromb Time International Ratio 4.19ratio Sodium Level 141mEq/L (134-144) Potassium Level 4.3mEq/L (3.5-5.2) Chloride Level 107mEq/L (97-108) Carbon Dioxide Level 16mmol/L (18-29) Blood Urea Nitrogen 21mg/dL (8-27) Creatinine 0.91mg/dL (0.57-1.00) Estimat Glomerular Filtration Rate 85mL/min (>59) Glucose Level 104mg/dL (60-99) Calcium Level 8.7mg/dL (8.5-10.1) Magnesium Level 2.1mg/dL (1.6-2.6) Total Bilirubin 0.5mg/dL (0.0-1.2) Aspartate Amino Transf (AST/SGOT) 11U/L (0-50) Alanine Aminotransferase (ALT/SGPT) 7U/L (0-32) Alkaline Phosphatase 109U/L (25-165) Troponin T 0.010ug/L (0.0-0.011) 0.010ug/L (0.0-0.011) 0.010ug/L (0.0-0.011) Total Protein 6.2g/dL (6.4-8.4) Albumin 3.9g/dL (3.4-5.0) Lactic Acid Level 0.9mmol/L (0.4-2.0) Test 11/09/16 18:12 11/10/16 00:06 11/10/16 12:25 11/11/16 03:50 Hemoglobin 7.3g/dL (12.0-15.6) 6.8g/dL (12.0-15.6) 10.6g/dL (12.0-15.6) 9.8g/dL (12.0-15.6) Hematocrit 24.0% (35.0-46.0) 22.6% (35.0-46.0) 32.2% (35.0-46.0) 30.3% (35.0-46.0) White Blood Count 6.7th/mm3 (3.8-10.1) 6.6th/mm3 (3.8-10.1) Red Blood Count 4.29mil/mm3 (3.90-5.20) 4.01mil/mm3 (3.90-5.20) Mean Corpuscular Volume 75.1fL (81-100) 75.6fL (81-100) Mean Corpuscular Hemoglobin 24.7pg (27.0-35.0) 24.4pg (27.0-35.0) Mean Corpuscular Hemoglobin Concent 32.9% (32.0-37.0) 32.3% (32.0-37.0) Red Cell Distribution Width 18.7% (12.3-15.4) 18.8% (12.3-15.4) Platelet Count 287bil/L (150-400) 272bil/L (150-400) Neutrophils (%) (Auto) 65.2% (40-74) 57.6% (40-74) Lymphocytes (%) (Auto) 22.7% (14-46) 28.4% (14-46) Monocytes (%) (Auto) 9.3% (4-12) 10.2% (4-12) Eosinophils (%) (Auto) 1.8% (0-5) 2.9% (0-5) Basophils (%) (Auto) 0.9% (0-3) 0.6% (0-3) Prothrombin Time 26.5sec (8.1-12.5) Prothromb Time International Ratio 2.43ratio Sodium Level 140mEq/L (134-144) 141mEq/L (134-144) Potassium Level 4.1mEq/L (3.5-5.2) 4.0mEq/L (3.5-5.2) Chloride Level 101mEq/L (97-108) 105mEq/L (97-108) Carbon Dioxide Level 22mmol/L (18-29) 22mmol/L (18-29) Blood Urea Nitrogen 14mg/dL (8-27) 13mg/dL (8-27) Creatinine 0.99mg/dL (0.57-1.00) 0.97mg/dL (0.57-1.00) Estimat Glomerular Filtration Rate 77mL/min (>59) 79mL/min (>59) Glucose Level 98mg/dL (60-99) 96mg/dL (60-99) Calcium Level 9.1mg/dL (8.5-10.1) 8.8mg/dL (8.5-10.1) Total Bilirubin 2.9mg/dL (0.0-1.2) Aspartate Amino Transf (AST/SGOT) 12U/L (0-50) Alanine Aminotransferase (ALT/SGPT) 7U/L (0-32) Alkaline Phosphatase 115U/L (25-165) Total Protein 5.8g/dL (6.4-8.4) Albumin 4.0g/dL (3.4-5.0) Result Diagram: 11/11/1634911/11/16 035 X-Rays, CTs and MRIs PROCEDURE: CT ABDOMEN AND PELVIS WITH CONTRAST ([id number]) INDICATIONS: abd pain on coumadin TECHNIQUE: After the administration of intravenous contrast, 5 mm thick sections acquired from the diaphragm to the symphysis. 5 mm coronal and sagittal reformats were acquired. For radiation dose reduction, the following was used: automated exposure control, adjustment of mA and/or kV according to patient size. COMPARISON: None. FINDINGS: Image quality: Excellent. ABDOMEN: Lung bases: Lung bases are clear. Heart size is normal. Solid organs: Liver and spleen are normal in size and enhancement. Gallbladder appears normal. Biliary system is non dilated. Pancreas enhances normally. No adrenal nodules. Kidneys demonstrate normal size and enhancement , without hydronephrosis. There are scattered renal cortical cysts but no solid mass lesion. Peritoneum and bowel: Bowel loops demonstrate normal wall thickness and caliber. No free fluid or air. Nodes and vessels: No retroperitoneal or mesenteric adenopathy by size criteria. The inferior vena cava is normal in size. There is ectasia of the abdominal aorta with aneurysmal dilatation of the middle third of the aorta measuring up to 3.4 cm AP and 3.8 cm transverse. Additionally, the right common iliac artery measures up to 2 cm diameter. Miscellaneous: No ventral hernias. PELVIS: Genitourinary: Bladder wall thickness is normal. Miscellaneous: No inguinal hernias or adenopathy. Bones: No suspicious bony lesions. No vertebral body compression fractures. IMPRESSION: No hematoma found, no trauma identified. 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 There is no sign of associated dissection or aneurysm leak. Dictated by: Syed Crow M.D. on 11/09/2016 at 8:06 Approved by: Syed Crow M.D. on 11/09/2016 at 8:10 PROCEDURE: X-RAY CHEST ONE VIEW, PORTABLE ([id number]) INDICATIONS: CHEST PAIN TECHNIQUE: One view of the chest was acquired. COMPARISON: [facility], CR, XR CHEST 1VW (PORTABLE), 07/02/2015, 19: 36. FINDINGS: Surgical changes and devices: None. Lungs and pleura: No pleural effusions or pneumothorax. Lungs are clear. Mediastinum: Mediastinal contours appear normal. Heart size is normal. Bones and chest wall: No suspicious bony lesions. Overlying soft tissues appear unremarkable. IMPRESSION: No acute cardiopulmonary disease. Dictated by: Rikki Forrest [facility] Interpreted: Tree Ding MD on 11/09/2016 at 8:39 Approved by: Tree Ding M.D. on 11/09/2016 at 9:50 12-lead ECG NSR 67, poor progression. Inferior Q. No ST changes. Cardiac Echo Impressions Name: SOPHIE SCOTT MStudy Yuan e: 01/24/2016 Height: 60 in Hospital Exam Location: [facility] Weight: 158 lb Gender: Female BSA: 1.7 m2 : 1935 Age: 80 yrs BP: 175/92 mmHg Reason For Study: Cardiomyopathy, Ischemic Ordering Physician: Performed By: Jovi Simpson Interpretation Summary Left ventricular systolic function is normal without focal wall motion abnormalities with the ejection fraction visually estimated to be 65-70% with resolution of the previously seen apical wall motion abnormality. Compared to the prior exam, left ventricular function has significantly improved. There is mild-moderate concentric left ventricular hypertrophy and diastolic parameters indicating a relaxation abnormality of the left ventricle, consistent with normal filling pressures. The right ventricle grossly appears normal in size with probable normal systolic function and likely unchanged compared to the previous study. The right ventricular systolic pressure is estimated at least 27 mmHg assuming a right atrial pressure of 3 mm Hg. The atria are not well visualized but grossly appear normal in size. There is mild to moderate mitral regurgitation that is unchanged compared to the previous study, and mild aortic valve sclerosis without hemodynamically significant aortic stenosis. There is no other significant valvular heart disease. The ascending aorta is moderately enlarged. The patient was in sinus bradycardia with heart rates between 42-48 bpm during the exam. Assessment & Plan #. Acute blood loss anemia, POA and active. It seems likely that she is having a subacute GI bleed. At this point we will place her on PPI IV twice a day and transfuse her 1 unit of packed red blood cells given her chest discomfort symptoms. She also has known triple-vessel coronary disease. We will continue her usual cardioprotective regimen and consult gastroenterology for upper endoscopy to rule out occult gastric source of GI bleed and blood loss anemia. -Gastroenterology saw the patient and she wishes not to have an EGD so we will proceed with barium swallow to evaluate upper GI series -Continue to monitor serial hematocrits -Since upper GI series and small bowel follow-through were negative discuss options with the patient's and wishes to proceed with EGD and colonoscopy at this time. #. Presumed subacute upper gastrointestinal bleed, POA and active. We will place her on a Protonix IV twice a day regimen and consult gastroenterology as outlined. Continue with IV Protonix twice a day for now. Initially went gastroenterology consulted she did not want have a scope and upper GI and small bowel follow-through were ordered which came back negative on November 10 and at this point after discussion patient wishes to pursue EGD and colonoscopy. #Sinus bradycardia, present on admission, chronic -She is dipping down into the 40s so we will go ahead and DC her metoprolol. -This was documented on previous echocardiogram exam also. #. Chest pressure, POA and active. She does have known triple-vessel coronary disease with a history of chronic systolic heart failure and myocardial infarction. The plan will be to continue continue her cardioprotective regimen with aspirin and beta-blockade and increase her hemoglobin substantially to improve her symptomatically. #. Essential hypertension, POA and active. At this point her blood pressure is not well controlled. May be due to increased anxiety. We will go ahead and initiate hydralazine by mouth. Upon further review from med reconciliation she had been on lisinopril and valsartan and the lisinopril was stopped. She may need this for better blood pressure control. #. Chronic systolic heart failure, POA and active. She is currently compensated we will follow her fluid status carefully especially in lieu of her pending blood transfusion. # CODE STATUS -Full code She is admitted inpatient status with anticipated length of stay over 2 nights GI Prophylaxis: Proton Pump Inhibitor VTE Prophylaxis: SCDs Resuscitation Status: CPR: Attempt Resuscitation Time spent 30 minutes Farzana Reina MD Nov 11, 2016 12:28
[2016-11-11] MEDS ORDERED: PEG/Electrolytes 4,000 mL Solution PO ONE (15:00)
[2016-11-11] MEDS ORDERED: Phytonadione (Adult) 10 mg/1 mL Inj PO ONE (16:25)
--- NOTE | 2016-11-11 17:33 | PCM.PNMED ---
Subjective Date of Service Nov 11, 2016 Subjective GASTROENTEROLOGY PROGRESS NOTE Attending Physician: Fay Lemus MD Resident Physician: Alisa Mcfarland DO No acute events overnight. Patient initially declined endoscopy and preferred a more conservative approach and underwent a barium swallow study on 11/10 which was negative. After further discussions with the patient she wishes to pursue the EGD and colonoscopy at this time. She does note significant anxiety about the procedures and notes that her son recently had a colonoscopy that ultimately ended with a colostomy. She states that she is scared but prefers to find out where she might be bleeding from. She otherwise states that she is doing well and is without complaint. Denies fevers, chills, abdominal pain, nausea, vomiting, or chest pain. Exam Vital Signs Vital Sign - Last Date Time Temp Pulse Resp B/P Pulse Ox O2 Delivery O2 Flow Rate FiO2 11/11/16 13:10 45 178/76 11/11/16 10:06 36.7 11/11/16 10:05 16 97 Room Air Intake and Output 11/10/16 11/10/16 11/11/16 Cumulative From/Thru 15:00 23:00 07:00 11/09/16 04:57 - 11/11/16 06:29 Intake Total 702 ml 480 ml 100 ml 2622 ml Output Total 600 ml 1750 ml 1000 ml 3750 ml Balance 102 ml -1270 ml -900 ml -1128 ml Intake Oral 320 ml 480 ml 100 ml 1140 ml IV Total 82 ml 882 ml Packed Cells 300 ml 600 ml Output Urine Total 600 ml 1750 ml 1000 ml 3750 ml # Bowel Movements 2 2 Exam General: Pleasant elderly woman in no acute distress. HEENT: Normocephalic, atraumatic, PERRLA, Mucous membranes moist/pink. Lungs: Clear to auscultation bilaterally with no crackles, wheezes, or rhonchi. Cardiovascular: Regular rate/rhythm. No murmurs/rubs/gallops Abdomen: Soft, nondistended, mild tenderness to palpation LLQ. No masses. Normoactive bowel tones. Extremities: No cyanosis/clubbing/edema bilaterally Neurological: AOx3, no focal deficit. Normal speech IVs and Medications Medications Reviewed: Medications were reviewed in detail Lab and Diagnostics Laboratory Tests Test 11/11/16 03:50 11/11/16 13:00 White Blood Count 6.6th/mm3 (3.8-10.1) Red Blood Count 4.01mil/mm3 (3.90-5.20) Hemoglobin 9.8g/dL (12.0-15.6) 10.4g/dL (12.0-15.6) Hematocrit 30.3% (35.0-46.0) 32.4% (35.0-46.0) Mean Corpuscular Volume 75.6fL (81-100) Mean Corpuscular Hemoglobin 24.4pg (27.0-35.0) Mean Corpuscular Hemoglobin Concent 32.3% (32.0-37.0) Red Cell Distribution Width 18.8% (12.3-15.4) Platelet Count 272bil/L (150-400) Neutrophils (%) (Auto) 57.6% (40-74) Lymphocytes (%) (Auto) 28.4% (14-46) Monocytes (%) (Auto) 10.2% (4-12) Eosinophils (%) (Auto) 2.9% (0-5) Basophils (%) (Auto) 0.6% (0-3) Sodium Level 141mEq/L (134-144) Potassium Level 4.0mEq/L (3.5-5.2) Chloride Level 105mEq/L (97-108) Carbon Dioxide Level 22mmol/L (18-29) Blood Urea Nitrogen 13mg/dL (8-27) Creatinine 0.97mg/dL (0.57-1.00) Estimat Glomerular Filtration Rate 79mL/min (>59) Glucose Level 96mg/dL (60-99) Calcium Level 8.8mg/dL (8.5-10.1) Result Diagram: 11/11/16 1300 11/11/16 0350 X-Rays, CTs and MRIs 11/09/16 - CT ABDOMEN AND PELVIS WITH CONTRAST IMPRESSION: -No hematoma found, no trauma identified. -Aneurysmal dilatation is present at the middle third of the abdominal aorta which measures up to 3.4 x 3.8 cm in maximal axial dimensions, and also the proximal common iliac artery on the right measures up to 2 cm. -There is no sign of associated dissection or aneurysm leak. Approved by: Syed Crow M.D. on 11/09/2016 at 8:10 11/09/16 - X-RAY CHEST ONE VIEW, PORTABLE IMPRESSION: No acute cardiopulmonary disease. Approved by: Tree Ding M.D. on 11/09/2016 at 9:50 11/10/16 - X-RAY UPPER GI WITH BARIUM, AIR CONTRAST AND SMALL BOWEL FOLLOW- THROUGH IMPRESSION: -Normal upper GI series and small bowel follow-through. No source for anemia identified radiographically. -Atherosclerotic and mild aneurysmal change of the descending aorta redemonstrated. Approved by: Candis Fritz MD, PhD on 11/10/2016 at 15:57 Assessment & Plan 81-year-old female with a history of HTN, CAD, prior CVA, abdominal aortic aneurysm and GERD who presented to the ED with the complaint of increasing shortness of breath for the past three weeks. Admitted for further evaluation and management of anemia likely secondary to occult GI bleeding. Symptomatic anemia in a patient with guaiac positive stool and probable occult GI bleed. -Likely secondary to gastric ulcers due to daily aspirin in the setting of chronic anticoagulation with warfarin for patient's significant coronary artery disease. Cannot rule out malignancy. -GI series and small bowel follow-through were negative. Patient wishes to proceed with EGD and colonoscopy at this time. -Monitor H/H closely, transfuse pRBCs as needed. RECOMMENDATIONS: -Continue PPI bid -EGD and colonoscopy tomorrow Additional problems managed per primary medicine team. Sinus bradycardia, chronic. Chest pressure in patient with triple-vessel coronary disease Essential hypertension Chronic systolic heart failure Pain Evaluation: Adequate Pain Control GI Prophylaxis: Proton Pump Inhibitor VTE Prophylaxis: SCDs Resuscitation Status: CPR: Attempt Resuscitation Attending Statement patient seen and examined agree with resident physician note patient agreeable to proceed with endoscopic evaluation of anemia tomorrow she is currently drinking coon prep. Discussed with hospitalist regarding reversing anticoagulation, and she will be getting Vitamin k, if AM INR elevated above 1.7 then would transfuse FFP. Alisa Mcfarland DO Nov 11, 2016 16:11 Fay Lemus MD Nov 11, 2016 18:31
[2016-11-11] MEDS ORDERED: Enalaprilat 1.25 mg/mL 2 mL Inj IVPUSH PRN (18:25)
--- NOTE | 2016-11-11 18:58 | NUR ---
BP Cardiac: Pt denies CP, Tele Sinus kimberly 40-60s. BP elevated this AM, new order of Po hydralazine given, BP trending down. Elevated this afternoon again, Pressures 200-240/94-106 Dr Reina paged for PRN orders. enalaprilate ordered PRN for SBP > 170. Resp: Pt denies SOB, SPO2 97% on RA. GI/: Pt denies n/v/d, discussed Endoscopy and Colonoscopy with pt at length. Pt is anxious about procedures and about possible findings. Golytely started at 15:00. Pt passing thin yellow liquid stool by end of shift. Neuro: A&Ox4, HANNON
[2016-11-12] VITALS (12 sets, daily range): BP systolic 148–191; BP diastolic 67–100; PULSE 44–84; RESP 12–24; O2SAT 94–99
[2016-11-12] MEDS: 0.9% Sodium Chloride 250 ML IV SCH ×2 (00:35→11:15)
--- NOTE | 2016-11-12 01:32 | NUR ---
Tele/NPO/BP Clear liquids until 0600, then strict NPO, finished bowel prep, Blood pressure up to 213/79, contacted DR , ordered 5 Mg Vasotec one time dose immediately. A&O x 3 , using call light appropriately, independent to toilet , . Saline locked , Room air, Tele, Sinus Earl to Sinus 80.
[2016-11-12] MEDS: Pantoprazole 40 mg ER24 Tablet PO SCH ×2 (07:30→17:06)
[2016-11-12] MEDS ORDERED: fentaNYL-PF 50 mCg/mL 2 mL Inj ONE ×2 (08:00)
--- NOTE | 2016-11-12 09:15 | PCM.PNMED ---
Subjective Date of Service Nov 12, 2016 Subjective GASTROENTEROLOGY PROGRESS NOTE Attending Physician: Fay Lemus MD Resident Physician: Alsia Mcfarland DO No acute events overnight. Exam Vital Signs Vital Sign - Last Date Time Temp Pulse Resp B/P Pulse Ox O2 Delivery O2 Flow Rate FiO2 11/12/16 09:07 49 11/12/16 02:56 36.6 20 160/71 98 Room Air Intake and Output 11/11/16 11/11/16 11/12/16 Cumulative From/Thru 15:00 23:00 07:00 11/09/16 04:57 - 11/12/16 06:55 Intake Total 1000 ml 2000 ml 5622 ml Output Total 3750 ml Balance 1000 ml 2000 ml 1872 ml Intake Oral 1000 ml 2000 ml 4140 ml IV Total 882 ml Packed Cells 600 ml Output Urine Total 3750 ml # Voids 6 8 14 # Bowel Movements 1 3 Exam General: Pleasant elderly woman in no acute distress. HEENT: Normocephalic, atraumatic, PERRLA, Mucous membranes moist/pink. Lungs: Clear to auscultation bilaterally with no crackles, wheezes, or rhonchi. Cardiovascular: Regular rate/rhythm. No murmurs/rubs/gallops Abdomen: Soft, nondistended, mild tenderness to palpation LLQ. No masses. Normoactive bowel tones. Extremities: No cyanosis/clubbing/edema bilaterally Neurological: AOx3, no focal deficit. Normal speech IVs and Medications Medications Reviewed: Medications were reviewed in detail Lab and Diagnostics Laboratory Tests Test 11/11/16 13:00 Hemoglobin 10.4g/dL (12.0-15.6) Hematocrit 32.4% (35.0-46.0) Result Diagram: 11/11/16 1300 11/11/16 0350 X-Rays, CTs and MRIs 11/09/16 - CT ABDOMEN AND PELVIS WITH CONTRAST IMPRESSION: -No hematoma found, no trauma identified. -Aneurysmal dilatation is present at the middle third of the abdominal aorta which measures up to 3.4 x 3.8 cm in maximal axial dimensions, and also the proximal common iliac artery on the right measures up to 2 cm. -There is no sign of associated dissection or aneurysm leak. Approved by: Syed Crow M.D. on 11/09/2016 at 8:10 11/09/16 - X-RAY CHEST ONE VIEW, PORTABLE IMPRESSION: No acute cardiopulmonary disease. Approved by: Tree Ding M.D. on 11/09/2016 at 9:50 11/10/16 - X-RAY UPPER GI WITH BARIUM, AIR CONTRAST AND SMALL BOWEL FOLLOW- THROUGH IMPRESSION: -Normal upper GI series and small bowel follow-through. No source for anemia identified radiographically. -Atherosclerotic and mild aneurysmal change of the descending aorta redemonstrated. Approved by: Candis Fritz MD, PhD on 11/10/2016 at 15:57 Assessment & Plan 81-year-old female with a history of HTN, CAD, prior CVA, abdominal aortic aneurysm and GERD who presented to the ED with the complaint of increasing shortness of breath for the past three weeks. Admitted for further evaluation and management of anemia likely secondary to occult GI bleeding. Symptomatic anemia in a patient with guaiac positive stool and probable occult GI bleed. -Likely secondary to gastric ulcers due to daily aspirin in the setting of chronic anticoagulation with warfarin for patient's significant coronary artery disease. Cannot rule out malignancy. -GI series and small bowel follow-through were negative. Patient wishes to proceed with EGD and colonoscopy at this time. -Monitor H/H closely, transfuse pRBCs as needed. RECOMMENDATIONS: -Continue PPI bid -EGD and colonoscopy tomorrow Additional problems managed per primary medicine team. Sinus bradycardia, chronic. Chest pressure in patient with triple-vessel coronary disease Essential hypertension Chronic systolic heart failure reversing anticoagulation, and she will be getting Vitamin k, if AM INR elevated above 1.7 then would transfuse FFP. GI Prophylaxis: Proton Pump Inhibitor VTE Prophylaxis: SCDs Resuscitation Status: CPR: Attempt Resuscitation Alisa Mcfarland DO Nov 12, 2016 09:15
[2016-11-12 09:50] LABS: BASOPHILS % (AUTO) 0.6 % (0-3); EOSINOPHILS % (AUTO) 1.8 % (0-5); MONOCYTES % (AUTO) 8.4 % (4-12); Mean Corpuscular Hemoglobin 24.3 pg (27.0-35.0); Mean Corpuscular Volume 74.8 fL (81-100); NEUTROPHILS % (AUTO) 70.6 % (40-74); Platelet Count 282 bil/L (150-400)
[2016-11-12 10:06] LABS: INR 1.36 ratio
--- NOTE | 2016-11-12 10:51 | NUR ---
HTN/ Off Unit BP this am was 191/100 HR 67, pt anxious about procedure. Gave 5mg Vasotec IV. Rechecked BP and it was 184/90 HR 64. Also administered .5mg Ativan IV prior to leaving for endo. MD aware as well as Endo staff. Pt off unit at 1030 for procedure.
--- NOTE | 2016-11-12 11:01 | NUR ---
NUTRITION ASSESSMENT: ASSESS: Pt is an 81yo F admitted for chest pain and anemia. GI is following for possible GI bleed. She is scheduled to have EGD and colonoscopy today. She is currently NPO. Prior to NPO she was on CL/FL diet with good PO of 50-100%. PMHX: CAD, CHF, HTN, HLD, CVA, GERD LABS: Reviewed. T.bili 2.5, Alb 4.0 MEDS: Reviewed. angelfrvaleriano GI: BMx1 11/11 SKIN: No major issues CURRENT WTS: 67.3kg, BMI 28kg/m2, admit wt 69.9kg DIET: NPO EST. NEEDS: Kcals:1705-2045kcal/day (25-30kcal/kg) Pro: 70-85g/day (1.0-1.2g/kg) NUTRITION DIAGNOSIS: 1.) Inadequate oral intake related to altered GI function as evidence by need for NPO status for GI workup. NUTRITION INTERVENTION: 1.) Recommend advance diet when medically appropriate MONITOR / EVAL: NPO, wt, GI, labs, POC, nutrition status. Will continue to monitor per moderate nutrition risk guidelines
--- NOTE | 2016-11-12 11:27 | PCM.HPANE ---
Patient Data Surgeon Admitting Provider:Channing Landeros MD Attending Provider:Farzana Reina MD Primary Care Physician:Aliza Garcia MD Other Provider: Reason for Visit Chest Pain/Anemia Ht/WT & BMI Height (Feet): 5 Height (Inches): 1.00 Weight (Kilograms): 67.300 Body Mass Index 28.00 Allergies Coded Allergies: wool (Verified Allergy, Mild, rash, 11/09/16) Penicillins (Verified Allergy, Unknown, Rash, 11/09/16) clopidogrel bisulfate (Verified Allergy, Unknown, Diarrhea, 11/09/16) ezetimibe (Verified Allergy, Unknown, Diarrhea, 11/09/16) rosuvastatin calcium (Verified Allergy, Unknown, Diarrhea, 11/09/16) Uncoded Allergies: HYPERTENSION MEDS (Allergy, Unknown, 07/02/15) Past Anesthesia History Anesthesia History: Denies:: Anesthesia Reactions Diabetes History Hx Diabetes?: No MRSA MRSA: No Medications Active Scripts Aspirin Chew 81 Mg Chew81 Mg PO DAILY 30 Days Prov:Jamie Jane MD 07/06/15 Nitroglycerin SL (Nitrostat)0.4 Mg Tab.subl0.4 Mg SL Q5MIN PRN For Chest Pain 30 Days Prov:Jamie Jane MD 07/06/15 Reported Medications Metoprolol Succinate ER 25 Mg Tab.er.24h12.5 Mg PO DAILY 11/09/16 Acetaminophen 500 Mg Hlagfl503 Mg PO Q8H PRN For Pain 11/09/16 Atorvastatin Calcium 40 Mg Kdtfsk25 Mg PO QAM 11/09/16 Warfarin Sodium 5 Mg Tablet2.5 Mg PO Mackenzie,We 11/09/16 Losartan Potassium 50 Mg Jphjpu25 Mg PO QAM 11/09/16 Hydrochlorothiazide 25 Mg Hjxyac98 Mg PO Mo, , and Sa PRN Swelling of hands and feet 07/03/15 Warfarin Sodium 5 Mg Tablet5 Mg PO ,,Th,Fr,Sa 07/03/15 Discontinued Scripts Metoprolol Succinate ER 25 Mg Tab.er.24h25 Mg PO DAILY 30 Days Prov:Jamie Jane MD 07/06/15 Lisinopril 5 Mg Tablet2.5 Mg PO DAILY 30 Days Prov:Jamie Jane MD 07/06/15 Atorvastatin Calcium 40 Mg Dvclxx15 Mg PO HS 30 Days Prov:Jamie Jane MD 07/06/15 History History of ENT Problems?: Yes HEENT History: Positive for:: Cataracts Denies:: Dysphagia Glaucoma Sinus Problem Denture Type: Full- Upper Teeth Condition: No Teeth Hx of Heart Problems?: Yes Cardiovascular History: Positive for:: Cardiac Surgery (catherization) Chest Pain Congestive Heart Failure Edema Hypertension Denies:: Heart Murmur Irregular Heartbeat Pacemaker Thrombophlebitis Hx of Respiratory Problem?: Yes Respiratory History: Positive for:: Dyspnea Denies:: Asthma COPD Chest Surgery Emphysema Hemoptysis Pneumonia Tuberculosis Hx Neurologic Problems?: Yes Neurological History: Positive for:: CVA (TIA) Headaches (Migraines) Denies:: Dementia Dizziness Parkinson's Disease Seizures Hx of GI Problems?: Yes Hx of Problems?: Yes Genitourinary History: Positive for:: Urinary Tract Infection Denies:: HX of Hemodialysis Kidney Stones HX of Peritoneal Dialysis: No Female Hx: Denies:: Currently Endometriosis Pelvic Inflammatory Problems with Breasts? Hx Musculoskeletal Problems?: Yes Musculoskeletal History: Positive for:: Back Injury Denies:: Joint Replacement Musculoskeletal Trauma Hx of Psycho/Social Problems?: No Psycho Social History: Denies:: Anxiety Bipolar Disorder Hx Depression Suicide Attempt Hx Surgeries?: Yes (Angioplasty) Hx Any Other Health Problems?: No Other History: Positive for:: Hospitalization Denies:: Cancer Endocrine Disease Thyroid Disease History Blood Transfusions: Positive for:: Accept Blood Products? Denies:: Blood Transfuse Reaction Blood Transfusions Hx Diabetes: No Occupation: retired Hx Alcohol Use: NoHx Substance Use: No Smoking Status: Current Every Day Smoker Have You Smoked inLast 12 mo: YesApprox How Many Cigarettes/day: 3 or 4 cigarrettes/day Stop/Bang Treated for Sleep Apnea?: No Do You Have a CPAP Machine?: No S-Snoring: Do You Snore Loudly: No T-Tired: feel tired, fatigued: No O-Obsered: Observed not breath: No P-Blood Pressure: treated: Yes B- Body Mass Index > 35 kg/m2: No A- Age over 50: Yes N- Neck Large Circumference: No G- Gender Male: No RUBENS Total Score: 1 RUBESN Risk Assessment: Low Risk, <3 Yes Risk Assessment Category Category 1A: Patient has history of documented sleep apnea, and HAS NOT received any narcotic, sedative or anesthesia administration during this stay. Category 1B: Patient has history of documented sleep apnea, and HAS received any narcotic , sedative or anesthesia administration during this stay Category 2: Patient has SUSPECTED Obstructive Sleep Apnea, and HAS received any narcotic , sedative or anesthesia administration during this stay. Category 3: Patient has SUSPECTED Obstructive Sleep Apnea and HAS NOT received narcotic, sedative or anesthesia administration during this stay. Category 4: Outpatient in Procedural Areas with known sleep apnea or who screen positive for High Risk via the STOP/BANG questionnaire. Exam Exam Vital Signs Vital Signs Date Time Temp Pulse Resp B/P Pulse Ox O2 Delivery O2 Flow Rate FiO2 11/12/16 10:42 52 15 182/81 98 Room Air 11/12/16 09:23 36.9 67 17 191/100 96 Room Air 11/12/16 09:07 49 11/12/16 05:46 59 General Appearance: Alert, Oriented X3, Cooperative, No Acute Distress HEENT/AIRWAY: MP 2, Neck Movement Lungs: Clear to Auscultation, Normal Air Movement Heart: Exam Unremarkable, Regular Rate/Rhythm, No Murmurs/Rubs/Gallops Meds/Labs/Diagnostics Admission Meds Current Medications Polyethylene Glycol/ Electrolytes (Colyte) 4,000 ml ONCE ONCE PO Last administered on 11/11/16 15:42; Start 11/11/16 at 15:00; Stop 11/11/16 at 15:01 ; Status DC Phytonadione (Vitamin K (Adult)) 10 mg ONCE ONCE PO Last administered on 18:29; Start 11/11/16 at 16:25; Stop 11/11/16 at 16:49; Status DC Lisinopril (Zestril) 10 mg ONCE ONCE PO Last administered on 11/11/16 17:29; Start 11/11/16 at 16:30; Stop 11/11/16 at 16:49; Status DC Enalaprilat (Vasotec Inj) 5 mg ONCE ONCE IVPUSH Last administered on 00:58; Start 11/12/16 at 00:20; Stop 11/12/16 at 00:26; Status DC Labs Test 11/09/16 05:00 11/09/16 07:40 11/09/16 11:00 11/12/16 09:40 Magnesium Level 2.1mg/dL (1.6-2.6) Lactic Acid Level 0.9mmol/L (0.4-2.0) Troponin T 0.010ug/L (0.0-0.011) White Blood Count 6.5th/mm3 (3.8-10.1) Red Blood Count 4.56mil/mm3 (3.90-5.20) Hemoglobin 11.1g/dL (12.0-15.6) Hematocrit 34.1% (35.0-46.0) Mean Corpuscular Volume 74.8fL (81-100) Mean Corpuscular Hemoglobin 24.3pg (27.0-35.0) Mean Corpuscular Hemoglobin Concent 32.6% (32.0-37.0) Red Cell Distribution Width 19.8% (12.3-15.4) Platelet Count 282bil/L (150-400) Neutrophils (%) (Auto) 70.6% (40-74) Lymphocytes (%) (Auto) 18.4% (14-46) Monocytes (%) (Auto) 8.4% (4-12) Eosinophils (%) (Auto) 1.8% (0-5) Basophils (%) (Auto) 0.6% (0-3) Prothrombin Time 14.6sec (8.1-12.5) Prothromb Time International Ratio 1.36ratio Sodium Level 141mEq/L (134-144) Potassium Level 4.1mEq/L (3.5-5.2) Chloride Level 106mEq/L (97-108) Carbon Dioxide Level 19mmol/L (18-29) Blood Urea Nitrogen 9mg/dL (8-27) Creatinine 0.84mg/dL (0.57-1.00) Estimat Glomerular Filtration Rate 93mL/min (>59) Glucose Level 98mg/dL (60-99) Calcium Level 9.0mg/dL (8.5-10.1) Total Bilirubin 2.5mg/dL (0.0-1.2) Aspartate Amino Transf (AST/SGOT) 12U/L (0-50) Alanine Aminotransferase (ALT/SGPT) 7U/L (0-32) Alkaline Phosphatase 120U/L (25-165) Total Protein 5.9g/dL (6.4-8.4) Albumin 4.0g/dL (3.4-5.0) Plan Impression Patient chart reviewed, patient interviewed and anesthestic plan with risks, benefits, and alternatives discussed, and informed consent obtained. NPO per Anesth. Guidelines: Yes ASA Physical Status: ASA3 Severe Disease Anesthetic Plan: MAC Bene/Risks/Altern/Consents: Yes HP Complete Prior to Induction: Yes Tacos Fowler MD Nov 12, 2016 11:27
[2016-11-12] MEDS: Lactated Ringer's 1,000 ML IV SCH ×2 (11:36→12:02)
[2016-11-12] MEDS ORDERED: MetoCLOpramide 5 mg/mL 2 mL Inj IVPUSH PRN (11:40)
[2016-11-12] MEDS ORDERED: Ondansetron 2 mg/mL 2 mL Inj IVPUSH PRN (11:40)
--- NOTE | 2016-11-12 12:02 | PCM.PNMED ---
Subjective Date of Service Nov 12, 2016 Subjective Patient anxious about having endoscopies today. She notes she seemed to have a normal bowel movement with some pink streaking of it this morning. Exam Vital Signs Vital Sign - Last Date Time Temp Pulse Resp B/P Pulse Ox O2 Delivery O2 Flow Rate FiO2 11/12/16 10:42 52 15 182/81 98 Room Air 11/12/16 09:23 36.9 Intake and Output 11/11/16 11/11/16 11/12/16 Cumulative From/Thru 15:00 23:00 07:00 11/09/16 04:57 - 11/12/16 06:55 Intake Total 1000 ml 2000 ml 5622 ml Output Total 3750 ml Balance 1000 ml 2000 ml 1872 ml Intake Oral 1000 ml 2000 ml 4140 ml IV Total 882 ml Packed Cells 600 ml Output Urine Total 3750 ml # Voids 6 8 14 # Bowel Movements 1 3 Exam Constitutional: Elderly female in no acute distress Head: Normocephalic medical Chest: Clear to auscultation Cor: Regular rate and rhythm S1-S2 Abdomen: Soft nontender bowel sounds present Extremities: No pedal edema Neuro: Alert and oriented 3, motor strength is intact bilaterally Lab and Diagnostics Laboratory Tests 72 Hours Test 11/09/16 18:12 11/10/16 00:06 11/10/16 12:25 11/11/16 03:50 Hemoglobin 7.3g/dL (12.0-15.6) 6.8g/dL (12.0-15.6) 10.6g/dL (12.0-15.6) 9.8g/dL (12.0-15.6) Hematocrit 24.0% (35.0-46.0) 22.6% (35.0-46.0) 32.2% (35.0-46.0) 30.3% (35.0-46.0) White Blood Count 6.7th/mm3 (3.8-10.1) 6.6th/mm3 (3.8-10.1) Red Blood Count 4.29mil/mm3 (3.90-5.20) 4.01mil/mm3 (3.90-5.20) Mean Corpuscular Volume 75.1fL (81-100) 75.6fL (81-100) Mean Corpuscular Hemoglobin 24.7pg (27.0-35.0) 24.4pg (27.0-35.0) Mean Corpuscular Hemoglobin Concent 32.9% (32.0-37.0) 32.3% (32.0-37.0) Red Cell Distribution Width 18.7% (12.3-15.4) 18.8% (12.3-15.4) Platelet Count 287bil/L (150-400) 272bil/L (150-400) Neutrophils (%) (Auto) 65.2% (40-74) 57.6% (40-74) Lymphocytes (%) (Auto) 22.7% (14-46) 28.4% (14-46) Monocytes (%) (Auto) 9.3% (4-12) 10.2% (4-12) Eosinophils (%) (Auto) 1.8% (0-5) 2.9% (0-5) Basophils (%) (Auto) 0.9% (0-3) 0.6% (0-3) Prothrombin Time 26.5sec (8.1-12.5) Prothromb Time International Ratio 2.43ratio Sodium Level 140mEq/L (134-144) 141mEq/L (134-144) Potassium Level 4.1mEq/L (3.5-5.2) 4.0mEq/L (3.5-5.2) Chloride Level 101mEq/L (97-108) 105mEq/L (97-108) Carbon Dioxide Level 22mmol/L (18-29) 22mmol/L (18-29) Blood Urea Nitrogen 14mg/dL (8-27) 13mg/dL (8-27) Creatinine 0.99mg/dL (0.57-1.00) 0.97mg/dL (0.57-1.00) Estimat Glomerular Filtration Rate 77mL/min (>59) 79mL/min (>59) Glucose Level 98mg/dL (60-99) 96mg/dL (60-99) Calcium Level 9.1mg/dL (8.5-10.1) 8.8mg/dL (8.5-10.1) Total Bilirubin 2.9mg/dL (0.0-1.2) Aspartate Amino Transf (AST/SGOT) 12U/L (0-50) Alanine Aminotransferase (ALT/SGPT) 7U/L (0-32) Alkaline Phosphatase 115U/L (25-165) Total Protein 5.8g/dL (6.4-8.4) Albumin 4.0g/dL (3.4-5.0) Test 11/11/16 13:00 11/12/16 09:40 Hemoglobin 10.4g/dL (12.0-15.6) 11.1g/dL (12.0-15.6) Hematocrit 32.4% (35.0-46.0) 34.1% (35.0-46.0) White Blood Count 6.5th/mm3 (3.8-10.1) Red Blood Count 4.56mil/mm3 (3.90-5.20) Mean Corpuscular Volume 74.8fL (81-100) Mean Corpuscular Hemoglobin 24.3pg (27.0-35.0) Mean Corpuscular Hemoglobin Concent 32.6% (32.0-37.0) Red Cell Distribution Width 19.8% (12.3-15.4) Platelet Count 282bil/L (150-400) Neutrophils (%) (Auto) 70.6% (40-74) Lymphocytes (%) (Auto) 18.4% (14-46) Monocytes (%) (Auto) 8.4% (4-12) Eosinophils (%) (Auto) 1.8% (0-5) Basophils (%) (Auto) 0.6% (0-3) Prothrombin Time 14.6sec (8.1-12.5) Prothromb Time International Ratio 1.36ratio Sodium Level 141mEq/L (134-144) Potassium Level 4.1mEq/L (3.5-5.2) Chloride Level 106mEq/L (97-108) Carbon Dioxide Level 19mmol/L (18-29) Blood Urea Nitrogen 9mg/dL (8-27) Creatinine 0.84mg/dL (0.57-1.00) Estimat Glomerular Filtration Rate 93mL/min (>59) Glucose Level 98mg/dL (60-99) Calcium Level 9.0mg/dL (8.5-10.1) Total Bilirubin 2.5mg/dL (0.0-1.2) Aspartate Amino Transf (AST/SGOT) 12U/L (0-50) Alanine Aminotransferase (ALT/SGPT) 7U/L (0-32) Alkaline Phosphatase 120U/L (25-165) Total Protein 5.9g/dL (6.4-8.4) Albumin 4.0g/dL (3.4-5.0) Result Diagram: 11/12/16 0940 11/12/16 0940 X-Rays, CTs and MRIs 11/09/16 - CT ABDOMEN AND PELVIS WITH CONTRAST IMPRESSION: -No hematoma found, no trauma identified. -Aneurysmal dilatation is present at the middle third of the abdominal aorta which measures up to 3.4 x 3.8 cm in maximal axial dimensions, and also the proximal common iliac artery on the right measures up to 2 cm. -There is no sign of associated dissection or aneurysm leak. Approved by: Syed Crow M.D. on 11/09/2016 at 8:10 11/09/16 - X-RAY CHEST ONE VIEW, PORTABLE IMPRESSION: No acute cardiopulmonary disease. Approved by: Tree Ding M.D. on 11/09/2016 at 9:50 11/10/16 - X-RAY UPPER GI WITH BARIUM, AIR CONTRAST AND SMALL BOWEL FOLLOW- THROUGH IMPRESSION: -Normal upper GI series and small bowel follow-through. No source for anemia identified radiographically. -Atherosclerotic and mild aneurysmal change of the descending aorta redemonstrated. Approved by: Candis Fritz MD, PhD on 11/10/2016 at 15:57 Assessment & Plan 81-year-old female with a history of HTN, CAD, prior CVA, abdominal aortic aneurysm and GERD who presented to the ED with the complaint of increasing shortness of breath for the past three weeks. Admitted for further evaluation and management of anemia likely secondary to occult GI bleeding. Symptomatic anemia in a patient with guaiac positive stool and probable occult GI bleed. -Likely secondary to gastric ulcers due to daily aspirin in the setting of chronic anticoagulation with warfarin for patient's significant coronary artery disease. Cannot rule out malignancy. -GI series and small bowel follow-through were negative. Patient wishes to proceed with EGD and colonoscopy at this time. -Monitor H/H closely, transfuse pRBCs as needed. RECOMMENDATIONS: -Continue PPI bid -EGD and colonoscopy November 12 Additional problems managed per primary medicine team. Sinus bradycardia, chronic. We DC'd her low-dose metoprolol dosing Chest pressure in patient with triple-vessel coronary disease Essential hypertension and poorly controlled which may have to do with she was both on valsartan and lisinopril and we will go ahead and restart an BOB inhibitor may be titrate that up and DC her valsartan. Chronic systolic heart failure-currently stable GI Prophylaxis: Proton Pump Inhibitor VTE Prophylaxis: SCDs Resuscitation Status: CPR: Attempt Resuscitation Time spent 30 minutes Farzana Reina MD Nov 12, 2016 12:02
--- NOTE | 2016-11-12 12:35 | PCM.ANEP1 ---
Post Anesthesia PACU Phase 1 Assessment Vital Signs Vital Signs Date Time Temp Pulse Resp B/P Pulse Ox O2 Delivery O2 Flow Rate FiO2 11/12/16 12:28 44 14 176/67 98 Room Air 11/12/16 12:20 36.4 57 12 161/69 99 Room Air 11/12/16 10:42 52 15 182/81 98 Room Air 11/12/16 09:23 36.9 67 17 191/100 96 Room Air 11/12/16 09:07 49 11/12/16 05:46 59 Anesthetic Administered: MAC Level of Alertness: Awake, talking HANNON's with Equal Strength: Yes Pain: Yes Nausea or Vomiting: No CV Function & Hydration Stable: Yes Airway Device: Oxygen Delivery: Room Air Lungs: Clear to Auscultation, Normal Air Movement Dermatome Level: Full Sensation PACU Phase 2 Assessment Complications: No Follow up Care: N/A Patient Instructions Provided: N/A Tacos Fowler MD Nov 12, 2016 12:35
--- NOTE | 2016-11-12 13:12 | ENDO ---
[address] [address] ENDOSCOPY PROCEDURE PATIENT: SOPHIE SCOTT : 1935 MR#: [id number] ADMIT: 11/09/2016 JOB ID: [id number] PROCEDURE: Esophagogastroduodenoscopy. INDICATION: Iron deficiency anemia. Patient's ASA classification, Mallampati score, and medications as per anesthesia note. INSTRUMENT USED: [id number]-H180J. PROCEDURE DETAILS: After informed consent was obtained, the patient was brought into the GI suite, where she was placed on oxygen via nasal cannula and monitored with continuous pulse oximeter, telemetry, and blood pressure monitoring. A time-out was performed. Then, she was placed in a left lateral decubitus position and medications were administered for sedation. A bite block was placed. The standard EGD scope was inserted through the bite block and advanced under direct visualization to second portion of duodenum without difficulty. FINDINGS: 1. Normal-appearing duodenal bulb, first and second portion. 2. Normal-appearing pylorus. 3. In the antrum, there were multiple erosions without any active bleeding noted. 4. Normal-appearing gastric body. 5. Retroflexed views in the gastric body revealed a normal-appearing cardia and fundus. 6. Multiple random biopsies were obtained throughout the antrum and body of the stomach. 7. The GE junction was at approximately 37 cm and was slightly irregular. 8. Normal-appearing esophagus. IMPRESSION: 1. Multiple antral erosions. 2. Slightly irregular gastroesophageal junction. RECOMMENDATIONS: 1. Await biopsy results. 2. PPI daily. 3. Proceed to colonoscopy. COMPLICATIONS: None. ESTIMATED BLOOD LOSS: Less than 5 mL. PROCEDURE PERFORMED: Colonoscopy. INDICATION: Iron deficiency anemia. Please see above for ASA classification, Mallampati score, and medications. INSTRUMENT USED: [id number]. PREPARATION QUALITY: Poor. PROCEDURE DETAILS: After completion of the EGD exam, the patient was turned and a digital rectal exam was performed which was unremarkable. The colonoscope was then inserted into the rectum and advanced under direct visualization to the cecum, which was identified by the presence of the ileocecal valve. I was unable to identify the appendiceal orifice secondary to the prep being poor. The colonoscope was then withdrawn back into the rectum as the mucosa and lumen were examined. In the rectum, retroflexion was performed. Following retroflexion, remaining air in the rectum was suctioned, and procedure was completed. FINDINGS: 1. In the proximal transverse colon, there was a flat, 5-6 mm polyp which was removed with cold biopsy forceps 2. Just distal to this, in the mid transverse colon, there was an approximately 7 mm sessile polyp that was removed with a hot snare. 3. In the distal transverse colon, there was what appeared to be a 1.5cm flat polyp that was ulcerated in the center. A snare was placed around the polyp. However , the polyp felt quite firm, and therefore, I was concerned about the possibility of perforation and also concerned that this may be a malignant polyp. Therefore, the polyp was not removed. Multiple biopsies were obtained. 4. The Izzy ink was injected distal to and proximal to the polyp. 5. Scattered diverticula were seen throughout the left side of the colon. 6. Retroflexed views in the rectum were unremarkable. IMPRESSION: 1. Proximal transverse polyp. 2. Transverse polyp. 3. Distal transverse mass. RECOMMENDATIONS: 1. Await pathology results. 2. Surgical consultation. 3. Continue to hold anticoagulation. 4. Continue to follow H and H closely. COMPLICATIONS: None. ESTIMATED BLOOD LOSS: Less than 5 mL. MTDD
--- NOTE | 2016-11-12 22:02 | CONS ---
[address] [address] CONSULTATION REPORT PATIENT: SOPHIE SCOTT : 1935 MR#: [id number] ADMIT: 11/09/2016 JOB ID: [id number] DATE OF SERVICE: 11/12/2016 CHIEF COMPLAINT: This is an 81-year-old woman with a mass of the distal transverse colon concerning for malignancy. This consultation is requested by Kimber Lemus MD, of Gastroenterology. HISTORY OF PRESENT ILLNESS: This is an 81-year-old woman who was admitted to the hospital three days ago when she presented with a 3-week history of dyspnea, some chest pressure with exertion, and was found to be anemic with hematocrit of 23. She underwent workup including a CT scan which did not reveal an etiology, upper GI series with small bowel follow-through which did not reveal an etiology, and upper and lower endoscopy. Lower endoscopy showed a mass in the distal transverse colon that was concerning for malignancy. It was not circumferential nor obstructing. Biopsies were performed by Dr. Lemus. He requested that I see the patient in anticipation of what appeared to be possible malignancy. PAST MEDICAL HISTORY: Coronary artery disease, hypertension, hyperlipidemia, history of TIA, a 3.8 cm abdominal aortic aneurysm, GERD. PAST SURGICAL HISTORY: None. MEDICATIONS: Her home medications include aspirin, atorvastatin, lisinopril, metoprolol, and warfarin. ALLERGIES: 1. PLAVIX. 2. EZETIMIBE. 3. ROSUVASTATIN. 4. PENICILLIN. 5. WOOL. FAMILY HISTORY: Her son has Crohn disease and has had some type of operation resulting in an ileostomy. No other history of GI malignancy. SOCIAL HISTORY: She is retired and lives at home with her son. She says she smokes 2-3 cigarettes per day. No alcohol use, recreational drugs. REVIEW OF SYSTEMS: Eleven-point review of systems is positive as noted in the HPI and is otherwise negative. PHYSICAL EXAMINATION: Temperature 37.1, heart rate 68, blood pressure 154/90, respiratory rate of 20, saturation 96% on room air. General: Awake and alert, no acute distress. Head: Normocephalic. Neck: Supple. Cardiac: Regular rate and rhythm, no murmurs, rubs, or gallops. Respiratory: Clear to auscultation bilaterally. Abdomen: Soft, nontender, nondistended. Extremities: No edema. Psychiatric: Normal cognition and judgment. LABORATORIES: Hematocrit on admission was 23.3, dropped to a bere of 22.6, and is currently 34.1. White blood cell count has been normal on this admission. Platelets are 282. Comprehensive metabolic panel is within normal limits with the exception of bilirubin 2.5. Her albumin is 4.0. The bilirubin was 2.9 two days ago and therefore is dropping. INR is 1.36 today, 4.19 on admission. IMAGING: A CT scan of the abdomen shows aneurysmal dilation at the middle third of the abdominal aorta up to 3.8 cm in maximal dimension. The common iliac artery on the right measures up to 2 cm. No dissection or pseudoaneurysm. ASSESSMENT: An 81-year-old woman with possible malignancy of the distal transverse colon, pending final pathology. RECOMMENDATIONS: I recommend a CT scan of the chest and CEA level. Await pathology results. I recommend that she follow up in my clinic next week after her pathology results have returned in order to discuss the implications of those results, and, if malignancy is found, the details of surgical therapy for this. 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 45 minutes was spent on this patient visit today, >50% in counseling and/or coordination of care. BRAD
[2016-11-13] VITALS (9 sets, daily range): BP systolic 129–157; BP diastolic 66–82; PULSE 54–100; RESP 16–18; O2SAT 95–99
[2016-11-13] MEDS: 0.9% Sodium Chloride 250 ML IV SCH ×2 (00:35→11:15)
--- NOTE | 2016-11-13 06:17 | NUR ---
Anxiety/BP Pt voices anxiety and concern about her new diagnosis, actively listening to pt's worries and allowed pt to express feelings. Pt;s SBP at 168, Vasotec IV given x1, effective (see flowsheet). Pt denies any pain all shift.
[2016-11-13] MEDS: Pantoprazole 40 mg ER24 Tablet PO SCH ×2 (07:50→16:25)
[2016-11-13 08:15] LABS: INR 1.12 ratio
--- NOTE | 2016-11-13 09:23 | DRSVH ---
PROCEDURE: CT CHEST WITH CONTRAST ([id number]) INDICATIONS: large colonic mass TECHNIQUE: After the administration of intravenous contrast, 5 mm thick sections acquired from the pulmonary api bryant to the posterior costophrenic angles. 7 mm thick coronal and sagittal MIP reformats were acquire d. For radiation dose reduction, the following was used: automated exposure control, adjustment of mA and/or kV according to patient size. COMPARISON: [facility], CT, CT ABD PELVIS W CON, 11/09/2016, 7:42. FINDINGS: Image quality: Excellent. Lungs and pleura: No acute air space opacities. No pleural effusions or pneumothorax. Central and peripheral airways are patent and normal in caliber. Mediastinum: Heart size is normal. No pericardial effusion. There is coronary and aortic calcifica tion. No mediastinal or hilar adenopathy by size criteria. The size mediastinal lymph nodes are nons pecific. Thoracic aorta is ectatic. Central pulmonary arteries are normal in size. Esophagus is norm al in caliber. No hiatal hernia. Bones and chest wall: No suspicious bony lesions. No vertebral body compression fractures. No axil scottie or supraclavicular adenopathy by size criteria. There is a 9 mm low density nodule in the right thyroid lobe. Abdomen: Visualized upper abdominal solid organs appear normal. Upper abdominal bowel loops are nor mal in caliber. Note is made of bilateral renal cysts. Colonic diverticula are present. IMPRESSION: 1. No metastatic disease in thorax. 2. Borderline sized mediastinal lymph nodes are nonspecific. 3. A 9 mm right thyroid nodule. Thyroid ultrasound is suggested for followup. 4. Bilateral renal cysts. 5. Colonic diverticulosis. Dictated by: Bhanu Fernando M.D. on 11/13/2016 at 9:13 Approved by: Bhanu Fernando M.D. on 11/13/2016 at 9:21
--- NOTE | 2016-11-13 13:14 | PCM.DIMED ---
Discharge Instructions Date of Service Nov 13, 2016 Dates of Hospitalization Nov 09, 2016 at 07:48 Discharge Diagnosis Discharge Diagnosis Large polypoid lesion in distal transverse colon biopsies pending Acute GI bleed secondary to above Anticoagulation on warfarin which has been discontinued and very to GI bleed Medication Instructions Additional med instructions Stop warfarin Test Results Test Results Laboratory Tests 72 Hours Test 11/11/16 03:50 11/11/16 13:00 11/12/16 09:40 11/13/16 07:51 White Blood Count 6.6th/mm3 (3.8-10.1) 6.5th/mm3 (3.8-10.1) Red Blood Count 4.01mil/mm3 (3.90-5.20) 4.56mil/mm3 (3.90-5.20) Hemoglobin 9.8g/dL (12.0-15.6) 10.4g/dL (12.0-15.6) 11.1g/dL (12.0-15.6) 10.5g/dL (12.0-15.6) Hematocrit 30.3% (35.0-46.0) 32.4% (35.0-46.0) 34.1% (35.0-46.0) 32.4% (35.0-46.0) Mean Corpuscular Volume 75.6fL (81-100) 74.8fL (81-100) Mean Corpuscular Hemoglobin 24.4pg (27.0-35.0) 24.3pg (27.0-35.0) Mean Corpuscular Hemoglobin Concent 32.3% (32.0-37.0) 32.6% (32.0-37.0) Red Cell Distribution Width 18.8% (12.3-15.4) 19.8% (12.3-15.4) Platelet Count 272bil/L (150-400) 282bil/L (150-400) Neutrophils (%) (Auto) 57.6% (40-74) 70.6% (40-74) Lymphocytes (%) (Auto) 28.4% (14-46) 18.4% (14-46) Monocytes (%) (Auto) 10.2% (4-12) 8.4% (4-12) Eosinophils (%) (Auto) 2.9% (0-5) 1.8% (0-5) Basophils (%) (Auto) 0.6% (0-3) 0.6% (0-3) Sodium Level 141mEq/L (134-144) 141mEq/L (134-144) Potassium Level 4.0mEq/L (3.5-5.2) 4.1mEq/L (3.5-5.2) Chloride Level 105mEq/L (97-108) 106mEq/L (97-108) Carbon Dioxide Level 22mmol/L (18-29) 19mmol/L (18-29) Blood Urea Nitrogen 13mg/dL (8-27) 9mg/dL (8-27) Creatinine 0.97mg/dL (0.57-1.00) 0.84mg/dL (0.57-1.00) Estimat Glomerular Filtration Rate 79mL/min (>59) 93mL/min (>59) Glucose Level 96mg/dL (60-99) 98mg/dL (60-99) Calcium Level 8.8mg/dL (8.5-10.1) 9.0mg/dL (8.5-10.1) Prothrombin Time 14.6sec (8.1-12.5) 12.0sec (8.1-12.5) Prothromb Time International Ratio 1.36ratio 1.12ratio Total Bilirubin 2.5mg/dL (0.0-1.2) Aspartate Amino Transf (AST/SGOT) 12U/L (0-50) Alanine Aminotransferase (ALT/SGPT) 7U/L (0-32) Alkaline Phosphatase 120U/L (25-165) Total Protein 5.9g/dL (6.4-8.4) Albumin 4.0g/dL (3.4-5.0) Diet Discharge Diet: Heart Healthy Activity Discharge Activity: Other (progress as tolerated) Call your provider Call your provider for: Fever or Chills, Shortness of breath, Bleeding, Chest pain, Vomitting, Excessive diarrhea, Weakness (unilateral) Patient Instructions Follow-up Provider: Aliza Garcia MD Follow-up with PCP in: Other (3-4 days, sooner if problems) Provider: Fay Lemus MD Follow-up in: Other (5-7 days) Mid-level Provider (F9): Rae Portillo MD Follow-up with Mid-level in: Other (5-7 days) Farzana Reina MD Nov 13, 2016 13:14
[2016-11-13] MEDS ORDERED: LISI-567 PO (13:16)
[2016-11-13] MEDS ORDERED: HYDR-3938 PO (13:16)
--- NOTE | 2016-11-13 13:36 | PCM.DC.MED ---
Discharge Summary Date of Service Nov 13, 2016 Dates of Hospitalization Date of Hospital Admission Nov 09, 2016 at 07:48 Date of Discharge: Nov 13, 2016 Providers: Admitting Physician: Channing Landeros MD Primary Care Physician: Aliza Garcia MD Attending Physician: Farzana Reina MD Diagnosis at Time of Discharge Diagnosis at Time of Discharge Large polypoid lesion in distal transverse colon biopsies pending Acute GI bleed secondary to above Anticoagulation on warfarin which has been discontinued and very to GI bleed Consultations Gastroenterology, general surgery Procedures XRay, CTs & MRIs 11/09/16 - CT ABDOMEN AND PELVIS WITH CONTRAST IMPRESSION: -No hematoma found, no trauma identified. -Aneurysmal dilatation is present at the middle third of the abdominal aorta which measures up to 3.4 x 3.8 cm in maximal axial dimensions, and also the proximal common iliac artery on the right measures up to 2 cm. -There is no sign of associated dissection or aneurysm leak. Approved by: Syed rCow M.D. on 11/09/2016 at 8:10 11/09/16 - X-RAY CHEST ONE VIEW, PORTABLE IMPRESSION: No acute cardiopulmonary disease. Approved by: Tree Ding M.D. on 11/09/2016 at 9:50 11/10/16 - X-RAY UPPER GI WITH BARIUM, AIR CONTRAST AND SMALL BOWEL FOLLOW- THROUGH IMPRESSION: -Normal upper GI series and small bowel follow-through. No source for anemia identified radiographically. -Atherosclerotic and mild aneurysmal change of the descending aorta redemonstrated. Approved by: Candis Fritz MD, PhD on 11/10/2016 at 15:57 PROCEDURE: CT CHEST WITH CONTRAST ([id number]) INDICATIONS: large colonic mass TECHNIQUE: After the administration of intravenous contrast, 5 mm thick sections acquired from the pulmonary apices to the posterior costophrenic angles. 7 mm thick coronal and sagittal MIP reformats were acquired. For radiation dose reduction , the following was used: automated exposure control, adjustment of mA and/or kV according to patient size. COMPARISON: [facility], CT, CT ABD PELVIS W CON, 11/09/2016, 7:42. FINDINGS: Image quality: Excellent. Lungs and pleura: No acute air space opacities. No pleural effusions or pneumothorax. Central and peripheral airways are patent and normal in caliber. Mediastinum: Heart size is normal. No pericardial effusion. There is coronary and aortic calcification. No mediastinal or hilar adenopathy by size criteria. The size mediastinal lymph nodes are nonspecific. Thoracic aorta is ectatic. Central pulmonary arteries are normal in size. Esophagus is normal in caliber. No hiatal hernia. Bones and chest wall: No suspicious bony lesions. No vertebral body compression fractures. No axillary or supraclavicular adenopathy by size criteria. There is a 9 mm low density nodule in the right thyroid lobe. Abdomen: Visualized upper abdominal solid organs appear normal. Upper abdominal bowel loops are normal in caliber. Note is made of bilateral renal cysts. Colonic diverticula are present. IMPRESSION: 1. No metastatic disease in thorax. 2. Borderline sized mediastinal lymph nodes are nonspecific. 3. A 9 mm right thyroid nodule. Thyroid ultrasound is suggested for followup. 4. Bilateral renal cysts. 5. Colonic diverticulosis. Dictated by: Bhanu Fernando M.D. on 11/13/2016 at 9:13 Approved by: Bhanu Fernando M.D. on 11/13/2016 at 9:21 Invasive Procedures PROCEDURE: Esophagogastroduodenoscopy. INDICATION: Iron deficiency anemia. Patient's ASA classification, Mallampati score, and medications as per anesthesia note. INSTRUMENT USED: [id number]. PROCEDURE DETAILS: After informed consent was obtained, the patient was brought into the GI suite, where she was placed on oxygen via nasal cannula and monitored with continuous pulse oximeter, telemetry, and blood pressure monitoring. A time-out was performed. Then, she was placed in a left lateral decubitus position and medications were administered for sedation. A bite block was placed. The standard EGD scope was inserted through the bite block and advanced under direct visualization to second portion of duodenum without difficulty. FINDINGS: 1. Normal-appearing duodenal bulb, first and second portion. 2. Normal-appearing pylorus. 3. In the antrum, there were multiple erosions without any active bleeding noted. 4. Normal-appearing gastric body. 5. Retroflexed views in the gastric body revealed a normal-appearing cardia and fundus. 6. Multiple random biopsies were obtained throughout the antrum and body of the stomach. 7. The GE junction was at approximately 37 cm and was slightly irregular. 8. Normal-appearing esophagus. IMPRESSION: 1. Multiple antral erosions. 2. Slightly irregular gastroesophageal junction. RECOMMENDATIONS: 1. Await biopsy results. 2. PPI daily. 3. Proceed to colonoscopy. COMPLICATIONS: None. ESTIMATED BLOOD LOSS: Less than 5 mL. PROCEDURE PERFORMED: Colonoscopy. INDICATION: Iron deficiency anemia. Please see above for ASA classification, Mallampati score, and medications. INSTRUMENT USED: [id number]. PREPARATION QUALITY: Poor. PROCEDURE DETAILS: After completion of the EGD exam, the patient was turned and a digital rectal exam was performed which was unremarkable. The colonoscope was then inserted into the rectum and advanced under direct visualization to the cecum, which was identified by the presence of the ileocecal valve. I was unable to identify the appendiceal orifice secondary to the prep being poor. The colonoscope was then withdrawn back into the rectum as the mucosa and lumen were examined. In the rectum, retroflexion was performed. Following retroflexion, remaining air in the rectum was suctioned, and procedure was completed. FINDINGS: 1. In the proximal transverse colon, there was a flat, 5-6 mm polyp which was removed with cold biopsy forceps 2. Just distal to this, in the mid transverse colon, there was an approximately 7 mm sessile polyp that was removed with a hot snare. 3. In the distal transverse colon, there was what appeared to be a 1.5cm flat polyp that was ulcerated in the center. A snare was placed around the polyp. However , the polyp felt quite firm, and therefore, I was concerned about the possibility of perforation and also concerned that this may be a malignant polyp. Therefore, the polyp was not removed. Multiple biopsies were obtained. 4. The Izzy ink was injected distal to and proximal to the polyp. 5. Scattered diverticula were seen throughout the left side of the colon. 6. Retroflexed views in the rectum were unremarkable. IMPRESSION: 1. Proximal transverse polyp. 2. Transverse polyp. 3. Distal transverse mass. RECOMMENDATIONS: 1. Await pathology results. 2. Surgical consultation. 3. Continue to hold anticoagulation. 4. Continue to follow H and H closely. COMPLICATIONS: None. ESTIMATED BLOOD LOSS: Less than 5 mL. Fay Lemus MD 11/12/16 1210 <Electronically signed by Fay Lemus MD> 11/12/16 2246 Report status: Signed Transcribed by: LEXI 11/12/16 1311 REPORT#: [id number] cc: Fay Lemus MD; Aliza Garcia MD Brief History This is an 81-year-old female presents with a three-week history of progressive dyspnea and chest tightness on exertion. She notes that this is then relieved by rest. She has had no associated nausea, vomiting or diaphoresis. She does have a known history of CAD with an abnormal echo in June 2015 revealing an EF of 35-40% with apical hypokinesis. Coronary angiogram at that time indicated triple vessel disease not amenable to bypass. Specifically she had a 30% left main lesion, a 40% LAD lesion, 90% first diagonal lesion, 50% circumflex lesion , and a 90% second obtuse marginal lesion. She had a completely occluded RCA, and was right side dominant. She was seen in the emergency department and found to have a hemoglobin of 7. She had brown and occult positive stool. She denies recent rectal bleeding but notes that she does not really look at her stool. No report of melena or bright red blood per rectum. She has had increased heartburn recently and some epigastric abdominal pain. She denies any nausea at this time. No orthopnea or pedal edema. Nothing other than exertion increases her symptoms of rest improves it. She denies any radiation of pain to the neck. This causes a chest tightness or pressure but not pain. She also describes a hard thumping of her heart but no palpitations. Hospital Course 81-year-old female with a history of HTN, CAD, prior CVA, abdominal aortic aneurysm and GERD who presented to the ED with the complaint of increasing shortness of breath for the past three weeks. Admitted for further evaluation and management of anemia likely secondary to occult GI bleeding. Colon mass in distal transverse colon noted on colonoscopy. -Probable source for GI bleeding along with the multiple antral erosions noted on EGD. Patient presented with symptomatic anemia and guaiac positive stool. -GI series and small bowel follow-through were negative. -EGD and Colonoscopy on 11/12, results as above. -Monitor H/H closely, transfuse pRBCs as needed. -Awaiting biopsy results, GI will contact patient -Follow up with Dr. Portillo with General surgery, as outpatient -Continue to hold anticoagulation -Await biopsy results Poorly controlled blood pressure, present on admission -Did add hydralazine to a regimen which I think think led to lightheadedness and tachycardia so this was DC'd . Prior to discharge -Currently on lisinopril 40 mg by mouth daily and nifedipine XL 30 mg by mouth daily Iron Deficiency Anemia -Continue iron supplementation -Close monitoring of H&H has been stable times several days -Continue PPI Additional problems managed per primary medicine team. Sinus bradycardia, chronic. So stopped Metoprolol. Chest pressure in patient with triple-vessel coronary disease Essential hypertension Chronic systolic heart failure Atrial fibrillation, paroxysmal, chronic Acute kidney injury Hyperlipidemia . She had PT evaluation the day of discharge and needs to use walker with ambulation. Exam Vital Signs (Last) Date Time Temp Pulse Resp B/P Pulse Ox O2 Delivery O2 Flow Rate FiO2 11/13/16 12:57 36.7 67 17 129/66 96 Room Air Exam Constitutional: Elderly female in no acute distress Head: Normocephalic atraumatic Chest: Clear to auscultation Cor: Regular rate and rhythm S1-S2 Abdomen: Soft nontender bowel sounds present Extremities: No pedal edema Skin: No rashes Psych: Mood and affect are appropriate Neuro: Alert and oriented 3, motor strength is intact bilaterally Test 11/09/16 05:00 11/09/16 07:40 11/09/16 11:00 11/12/16 09:40 Magnesium Level 2.1mg/dL (1.6-2.6) Lactic Acid Level 0.9mmol/L (0.4-2.0) Troponin T 0.010ug/L (0.0-0.011) White Blood Count 6.5th/mm3 (3.8-10.1) Red Blood Count 4.56mil/mm3 (3.90-5.20) Mean Corpuscular Volume 74.8fL (81-100) Mean Corpuscular Hemoglobin 24.3pg (27.0-35.0) Mean Corpuscular Hemoglobin Concent 32.6% (32.0-37.0) Red Cell Distribution Width 19.8% (12.3-15.4) Platelet Count 282bil/L (150-400) Neutrophils (%) (Auto) 70.6% (40-74) Lymphocytes (%) (Auto) 18.4% (14-46) Monocytes (%) (Auto) 8.4% (4-12) Eosinophils (%) (Auto) 1.8% (0-5) Basophils (%) (Auto) 0.6% (0-3) Sodium Level 141mEq/L (134-144) Potassium Level 4.1mEq/L (3.5-5.2) Chloride Level 106mEq/L (97-108) Carbon Dioxide Level 19mmol/L (18-29) Blood Urea Nitrogen 9mg/dL (8-27) Creatinine 0.84mg/dL (0.57-1.00) Estimat Glomerular Filtration Rate 93mL/min (>59) Glucose Level 98mg/dL (60-99) Calcium Level 9.0mg/dL (8.5-10.1) Total Bilirubin 2.5mg/dL (0.0-1.2) Aspartate Amino Transf (AST/SGOT) 12U/L (0-50) Alanine Aminotransferase (ALT/SGPT) 7U/L (0-32) Alkaline Phosphatase 120U/L (25-165) Total Protein 5.9g/dL (6.4-8.4) Albumin 4.0g/dL (3.4-5.0) Test 11/13/16 07:51 Hemoglobin 10.5g/dL (12.0-15.6) Hematocrit 32.4% (35.0-46.0) Prothrombin Time 12.0sec (8.1-12.5) Prothromb Time International Ratio 1.12ratio Discharge Medications Discharge Medications Aspirin Chew (Aspirin Chew) 81 Mg Chew 81 MG PO DAILY Prescribed by: DANNY ATWOOD MD Atorvastatin Calcium (Atorvastatin Calcium) 40 Mg Tablet 40 MG PO QAM (Reported ) Lisinopril (Lisinopril) 40 Mg Tablet 40 MG PO DAILY Prescribed by: FARZANA REINA MD Nifedipine ER (Adalat CC) 30 Mg Tablet 30 MG PO DAILY Prescribed by: FARZANA REINA MD As needed Acetaminophen (Acetaminophen) 500 Mg Tablet 500 MG PO Q8H PRN PRN For Pain ( Reported) Hydrochlorothiazide (Hydrochlorothiazide) 25 Mg Tablet 25 MG PO Mo, We, and Sa PRN PRN Swelling of hands and feet (Reported) Nitroglycerin SL (Nitrostat) 0.4 Mg Tab.subl 0.4 MG SL Q5MIN PRN PRN For Chest Pain Prescribed by: DANNY ATWOOD MD Additional med instructions Stop warfarin Followup Plan Disposition: Home Discharge Diet: Heart Healthy Discharge Activity: Other (progress as tolerated) Follow-up Provider: Aliza Garcia MD Follow-up with PCP in: Other (3-4 days, sooner if problems) Provider: Fay Lemus MD Follow-up in: Other (5-7 days) Mid-level Provider: Rae Portillo MD Follow-up with Mid-level in: Other (5-7 days) Time spent 60 minutes copies to: Fay Lemus MD; Rae Portillo MD; Aliza Garcia MD, Cheryl A MD Nov 13, 2016 13:36 Followup Plan Disposition: Home Discharge Diet: Heart Healthy Discharge Activity: Other (progress as tolerated) Follow-up Provider: Aliza Garcia MD Follow-up with PCP in: Other (3-4 days, sooner if problems) Provider: Fay Lemus MD Follow-up in: Other (5-7 days) Mid-level Provider: Rae Portillo MD Follow-up with Mid-level in: Other (5-7 days) Time spent 60 minutes copies to: Fay Lemus MD; Rae Portillo MD; Aliza Garcia MD, Cheryl A MD Nov 13, 2016 13:36
[2016-11-13] MEDS: 0.9% Sodium Chloride 1,000 ML IV SCH (14:34)
--- NOTE | 2016-11-13 15:10 | PCM.PNMED ---
Subjective Date of Service Nov 13, 2016 Subjective tolerating PO denies melena or rectal bleeding Exam Vital Signs Vital Sign - Last Date Time Temp Pulse Resp B/P Pulse Ox O2 Delivery O2 Flow Rate FiO2 11/13/16 12:57 36.7 67 17 129/66 96 Room Air Intake and Output 11/12/16 11/12/16 11/13/16 Cumulative From/Thru 15:00 23:00 07:00 11/09/16 04:57 - 11/13/16 06:46 Intake Total 300 ml 800 ml 350 ml 7072 ml Output Total 300 ml 800 ml 4850 ml Balance 300 ml 500 ml -450 ml 2222 ml Intake Oral 800 ml 350 ml 5290 ml IV Total 300 ml 1182 ml Packed Cells 600 ml Output Urine Total 300 ml 800 ml 4850 ml # Voids 3 17 # Bowel Movements 4 7 Exam GEN- no apparent distress, oriented to person, place and time HEENT- mild pallor RESP- clear bilaterally CVS-RRR Abdomen- soft, non tender, benign EXT- no edema Lab and Diagnostics Result Diagram: 11/13/16 0751 11/12/16 0940 X-Rays, CTs and MRIs 11/09/16 - CT ABDOMEN AND PELVIS WITH CONTRAST IMPRESSION: -No hematoma found, no trauma identified. -Aneurysmal dilatation is present at the middle third of the abdominal aorta which measures up to 3.4 x 3.8 cm in maximal axial dimensions, and also the proximal common iliac artery on the right measures up to 2 cm. -There is no sign of associated dissection or aneurysm leak. Approved by: Syed Crow M.D. on 11/09/2016 at 8:10 11/09/16 - X-RAY CHEST ONE VIEW, PORTABLE IMPRESSION: No acute cardiopulmonary disease. Approved by: Tree Ding M.D. on 11/09/2016 at 9:50 11/10/16 - X-RAY UPPER GI WITH BARIUM, AIR CONTRAST AND SMALL BOWEL FOLLOW- THROUGH IMPRESSION: -Normal upper GI series and small bowel follow-through. No source for anemia identified radiographically. -Atherosclerotic and mild aneurysmal change of the descending aorta redemonstrated. Approved by: Candis Fritz MD, PhD on 11/10/2016 at 15:57 PROCEDURE: CT CHEST WITH CONTRAST ([id number]) INDICATIONS: large colonic mass TECHNIQUE: After the administration of intravenous contrast, 5 mm thick sections acquired from the pulmonary apices to the posterior costophrenic angles. 7 mm thick coronal and sagittal MIP reformats were acquired. For radiation dose reduction , the following was used: automated exposure control, adjustment of mA and/or kV according to patient size. COMPARISON: [facility], CT, CT ABD PELVIS W CON, 11/09/2016, 7:42. FINDINGS: Image quality: Excellent. Lungs and pleura: No acute air space opacities. No pleural effusions or pneumothorax. Central and peripheral airways are patent and normal in caliber. Mediastinum: Heart size is normal. No pericardial effusion. There is coronary and aortic calcification. No mediastinal or hilar adenopathy by size criteria. The size mediastinal lymph nodes are nonspecific. Thoracic aorta is ectatic. Central pulmonary arteries are normal in size. Esophagus is normal in caliber. No hiatal hernia. Bones and chest wall: No suspicious bony lesions. No vertebral body compression fractures. No axillary or supraclavicular adenopathy by size criteria. There is a 9 mm low density nodule in the right thyroid lobe. Abdomen: Visualized upper abdominal solid organs appear normal. Upper abdominal bowel loops are normal in caliber. Note is made of bilateral renal cysts. Colonic diverticula are present. IMPRESSION: 1. No metastatic disease in thorax. 2. Borderline sized mediastinal lymph nodes are nonspecific. 3. A 9 mm right thyroid nodule. Thyroid ultrasound is suggested for followup. 4. Bilateral renal cysts. 5. Colonic diverticulosis. Dictated by: Bhanu Fernando M.D. on 11/13/2016 at 9:13 Approved by: Bhanu Fernando M.D. on 11/13/2016 at 9:21 Assessment & Plan Colon mass in distal transverse colon - await biopsy results -I will call her once results are posted - follow up with Dr Rae Portillo in clinic -contine to hold anticoagulation Iron Deficiency Anemia -iron supplementation -no overt bleeding GI Prophylaxis: Proton Pump Inhibitor VTE Prophylaxis: SCDs Resuscitation Status: CPR: Attempt Resuscitation Fay Lemus MD Nov 13, 2016 15:10
--- NOTE | 2016-11-13 15:33 | NUR ---
Social Work: Readiness for Discharge/Multidisciplinary Rounds D: EMR reviewed. Pt is on day 4 of hospitalization. Pt discussed in multidisciplinary rounds and is medically stable to discharge home today with family via POV. No SW needs identified, no MD orders received. SW will continue to follow until time of discharge. A: Pt who is independent at baseline P: Pt to discharge home with family via POV. No SW needs identified, no MD orders received. SW will continue to follow until time of discharge. ANUSHKA Castellano
--- NOTE | 2016-11-13 15:56 | NUR ---
Social Work: Discharge D: EMR reviewed. Pt is on day 4 of hospitalization. Pt discussed in multidisciplinary rounds and is medically stable to discharge home today with family via POV. No SW needs identified, no MD orders received. A: Pt who is independent at baseline P: Pt to discharge home with family via POV. No SW needs identified, no MD orders received. ANUSHKA Castellano
--- NOTE | 2016-11-13 17:16 | NUR ---
HR and Syncope Pt up to the bathroom prior to Discharge. operating theatre technician called and stated pt's HR was ST 120's-130's. Pt stated feeling dizzy and fatigues and could easily fall on her face. BP 120'80's HR 120's. MD aware and asked for a stat EKG, ordered for stat labs, and ordered Fluids. Pt will be staying the night and if feeling better and ambulating ok tomorrow can go home.
[2016-11-14] VITALS (11 sets, daily range): BP systolic 128–208; BP diastolic 62–90; PULSE 52–85; RESP 16–18; O2SAT 94–97
--- NOTE | 2016-11-14 00:09 | NUR ---
Care transferred to RADHIKA Yanes at 2300.
[2016-11-14] MEDS: 0.9% Sodium Chloride 250 ML IV SCH ×3 (00:35→23:28)
[2016-11-14] MEDS: 0.9% Sodium Chloride 1,000 ML IV SCH ×2 (01:49→15:03)
--- NOTE | 2016-11-14 06:32 | NUR ---
Rest Assumed care ~2315. Pt. resting on bed, indicated still feeling dizzy and anxious about being out of bed. Encouraged to use BSC during NOC, and use call light for safety assist. Denies pain, slightly elevated temperature which spontaneously resolved. Rested quietly for extended period, with eyes closed. Indicated no further needs. Tele: Sinus Earl, in 50's
[2016-11-14] MEDS: Pantoprazole 40 mg ER24 Tablet PO SCH ×2 (08:05→17:13)
[2016-11-14] MEDS: NIFEdipine 30 mg ER24 Tablet PO SCH (10:43)
--- NOTE | 2016-11-14 14:14 | NUR ---
Social Work: Readiness for Discharge/Multidisciplinary Rounds D: EMR reviewed. Pt is on day 5 of hospitalization. Pt discussed in multidisciplinary rounds and is medically stable to discharge home today pending Renal Artery Doppler Ultrasound. Pt intended to discharge yesterday but pt held for work up for Renal Artery Doppler Ultrasound. No SW needs identified, no MD orders received. SW will continue to follow until time of discharge. A: Pt who is independent at baseline P: Pt to discharge home with family via POV pending Renal Artery Doppler Ultrasound. No SW needs identified, no MD orders received. SW will continue to follow until time of discharge. ANUSHKA Castellano
--- NOTE | 2016-11-14 15:09 | PCM.PNMED ---
Subjective Date of Service Nov 14, 2016 Subjective Patient states she still has dizziness unable to ambulate around the room without feeling as if she will fall. Denies nausea vomiting or any pain. Does state she is unable to focus her eyes to read her book, denies chest pain. Hypertension has trended down somewhat, still remains borderline bradycardic. Telemetry shows sinus bradycardic rhythm. Saturating well on room air and afebrile. Urinary output remains low, 1.1 L yesterday 100 mL thus far today. Exam Vital Signs Vital Sign - Last Date Time Temp Pulse Resp B/P Pulse Ox O2 Delivery O2 Flow Rate FiO2 11/14/16 06:53 61 208/82 11/14/16 03:57 36.9 18 96 Room Air Intake and Output 11/13/16 11/13/16 11/14/16 Cumulative From/Thru 15:00 23:00 07:00 11/09/16 04:57 - 11/14/16 04:05 Intake Total 622 ml 150 ml 7844 ml Output Total 350 ml 100 ml 5300 ml Balance 272 ml 50 ml 2544 ml Intake Oral 400 ml 150 ml 5840 ml IV Total 222 ml 1404 ml Packed Cells 600 ml Output Urine Total 350 ml 100 ml 5300 ml # Voids 17 # Bowel Movements 7 Exam General: Awake and alert sitting up in hospital bed in no acute distress, well- developed, well-nourished, appropriately interactive HEENT: Normocephalic, atraumatic. Neck: Supple with full range of motion. No jugular venous distension. Cardiovascular: Regular rate and rhythm with no murmurs, rubs, or gallops appreciated Pulmonary: Clear to auscultation bilaterally with no crackles, wheezes, or rhonchi. Normal respiratory effort with no use of accessory muscles. Abdomen: Bowel tones present. Soft, nontender, nondistended. Extremities: No clubbing, cyanosis, edema Skin: Normal temperature, turgor, and texture Neurological: Cranial nerves grossly intact. Psychiatric: Normal mood and affect. Alert and oriented to person, place, and time. IVs and Medications Medications Reviewed: Medications were reviewed in detail Lab and Diagnostics Result Diagram: 11/14/16 0222 11/13/16 1456 X-Rays, CTs and MRIs . X-RAY CHEST ONE VIEW, PORTABLE IMPRESSION: No acute cardiopulmonary disease. Dictated by: Rikki ABARCA Interpreted: Tree Ding MD on 11/09/2016 CT ABDOMEN AND PELVIS WITH CONTRAST IMPRESSION: No hematoma found, no trauma identified. 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 There is no sign of associated dissection or aneurysm leak. Dictated by: Syed Crow M.D. on 11/09/2016 X-RAY UPPER GI WITH BARIUM, AIR CONTRAST AND SMALL BOWEL FOLLOW-THROUGH IMPRESSION: Normal upper GI series and small bowel follow-through. No source for anemia identified radiographically. Atherosclerotic and mild aneurysmal change of the descending aorta redemonstrated. Approved by: Candis Fritz MD, PhD on 11/10/2016 CT CHEST WITH CONTRAST IMPRESSION: 1. No metastatic disease in thorax. 2. Borderline sized mediastinal lymph nodes are nonspecific. 3. A 9 mm right thyroid nodule. Thyroid ultrasound is suggested for followup. 4. Bilateral renal cysts. 5. Colonic diverticulosis. Dictated by: Bhanu Fernando M.D. on 11/13/2016 Assessment & Plan Ms. Alonso is a 81-year-old female past medical history hypertension, coronary disease prior CVA abdominal aortic aneurysm admitted for anemia with probable GI bleed Iron deficiency Anemia, present on admission. Ongoing -Possibly secondary to bleeding ulcers from chronic NSAID use on top of chronic anticoagulation. Possibly malignancy -Remains symptomatic -GI evaluation showed colon mass and distal transverse colon awaiting biopsy results, follow-up with Gen. surgery as outpatient -Continue iron supplementation -Continue close monitoring of H&H -Transfuse PRBCs when necessary -Continue PPI -CT of chest did not reveal any significant findings except an incidental thyroid nodule was seen which outpatient follow-up is recommended for this. Hypertension, present on admission, poorly controlled. Ongoing -Stopped metoprolol secondary to bradycardia -Continue lisinopril -Continue nifedipine -Hydralazine 10 mg by mouth 4 times a day when necessary -Continue IVF 80 ml/hr NS -Check renal artery duplex exam Sinus bradycardia, present on admission. 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 Ongoing -Stopped Coumadin secondary to GI bleeding. INR yesterday 1.12 SANJUANITA, not present on admission. -Possibly secondary to perfusion deficit or BOB inhibitor -IVF as above -Continue to monitor Hyperlipidemia, present on admission. Ongoing -Atorvastatin Patient Status: Patient was admitted under inpatient status with expected length of stay greater than two midnights due to severity of presenting symptoms , risk of adverse event, and complexity of treatment plan. GI Prophylaxis: Proton Pump Inhibitor VTE Prophylaxis: SCDs Resuscitation Status: CPR: Attempt Resuscitation Time spent 30 minutes Attending Statement Patient has been seen and examined by myself with biomedical photographer and agree with above history, physical, assessment and plan. LETTY JOHNSON DO Nov 14, 2016 07:35 Farzana Reina MD Nov 14, 2016 16:45
--- NOTE | 2016-11-14 18:57 | NUR ---
dizziness/HTN Cardiac: Pt denies CP. Tele: SR 50s. HTN. BP elevated at start of shift 180s/80, AM BP meds given, again BP elevated in afternoon, PRN hydralazine given. BP down to 167/80. Resp: Pt denies SOB, SPO2 99% on RA GI/: Pt denies n/v/d, no BM since completing bowel prep for colonoscopy Neuro: A&Ox3, pt reports she is dizzy, "I can get up to the commode, but I don't think I could make it to the [place]." Pt's dizziness continued throughout shift.
[2016-11-15] VITALS (9 sets, daily range): BP systolic 114–203; BP diastolic 59–94; PULSE 59–91; RESP 16–22; O2SAT 95–97
[2016-11-15 02:43] LABS: Mean Corpuscular Hemoglobin 24.1 pg (27.0-35.0); Mean Corpuscular Volume 77.4 fL (81-100); NEUTROPHILS % (AUTO) 72.1 % (40-74); Platelet Count 217 bil/L (150-400)
[2016-11-15 02:44] LABS: BASOPHILS % (AUTO) 0.4 % (0-3); EOSINOPHILS % (AUTO) 3.1 % (0-5); MONOCYTES % (AUTO) 12.3 % (4-12)
[2016-11-15 03:09] LABS: INR 0.97 ratio
[2016-11-15 03:22] LABS: Magnesium 1.8 mg/dL (1.6-2.6)
[2016-11-15] MEDS: 0.9% Sodium Chloride 1,000 ML IV SCH ×3 (03:34→22:38)
[2016-11-15] MEDS ORDERED: Magnesium Sulf 2 Gm/50mL Water 2 GM in IV Premix 1 EACH IV ONE (03:50)
[2016-11-15] MEDS ORDERED: Potassium Chloride 20 mEq SR Tablet PO ONE (03:50)
--- NOTE | 2016-11-15 06:31 | NUR ---
Lab P: AM K+ 3.4, Mag 1.8 I: given kdur 40 meq po and mag sulfate 2gm IV E: no ectopy, stable H/H this AM 9.1/27.5 no s/s of bleeding.
--- NOTE | 2016-11-15 07:33 | PCM.PNSURG ---
Subjective Date of Service: Nov 15, 2016 Date of Service: Nov 15, 2016 Visit Information: Reason for Visit Chest Pain/Anemia Surgery/Surgery Date Post-Op Day # Date of Admission: Nov 09, 2016 at 07:48 Hospital Day #6 Subjective: Patient states that she is doing well this morning without any concerns of chest pain or shortness of breath. She states that she is able to walk short distances but complains of some persistent dizziness with ambulation. Patient denies any nausea or vomiting but states that her appetite is low. She is eating small amounts. Patient states that she thought she had a bowel movement this morning but per her nurse, she did not. Patient states that she is passing gas and anticipates that she will have a bowel movement after eating this morning. She denies any abdominal pain or distension but notes some discomfort in her abdomen from the gas. Postop General: No Shortness of Breath, No Chest Pain Gastrointestinal: Tolerating Oral Feedings, No N/V, Passing Flatus Pain Management: Good Pain Control Postop Activity: Ambulating in Room Only Objective Vital Sign- Last 8 Hours Date Time Temp Pulse Resp B/P Pulse Ox O2 Delivery O2 Flow Rate FiO2 11/15/16 03:18 37.3 59 16 149/66 95 Room Air Intake and Output- Last 8 Hour 11/15/16 Cumulative From/Thru 07:00 11/09/16 04:57 - 11/15/16 06:24 Intake Total 1356 ml 97644 ml Output Total 2400 ml 8700 ml Balance -1044 ml 2047 ml Intake Oral 400 ml 6880 ml IV Total 956 ml 3267 ml Packed Cells 600 ml Output Urine Total 2400 ml 8700 ml # Voids 6 23 # Bowel Movements 7 General: Alert, Oriented X3, No Acute Distress Neck: Supple Lungs: Clear to Auscultation, Normal Air Movement Heart: Regular Rate/Rhythm Abdomen: Soft, Non-tender, Normoactive bowel tones Extremities: Warm, Thigh&Calf Soft/Nontender Result Diagram: 11/15/1620411/15/16204 Assessment & Plan Impression Ms. Alonso is a 81 [id number] with a possible malignancy of the distal transverse colon, pending final pathology. Problems: Plan Awaiting biopsy results. Patient will plan to follow up outpatient with Dr. Portillo once biopsy results are back to discuss surgical options if indicated. VTE Prophylaxis: SCDs Resuscitation Status: CPR: Attempt Resuscitation Jenny Cano DO Nov 15, 2016 07:33
[2016-11-15] MEDS: Pantoprazole 40 mg ER24 Tablet PO SCH ×2 (09:37→18:02)
[2016-11-15] MEDS: NIFEdipine 30 mg ER24 Tablet PO SCH (09:38)
[2016-11-15] MEDS: 0.9% Sodium Chloride 250 ML IV SCH ×2 (09:40→22:38)
--- NOTE | 2016-11-15 13:26 | DRSVH ---
PROCEDURE: US VEINOUS LEG DUPLEX UNILATERAL, RIGHT INDICATIONS: possible DVT TECHNIQUE: Real-time imaging, as well as color and pulse Doppler interrogation, were performed of the lower extr emity deep veins from the inguinal ligament to the popliteal fossa. COMPARISON: None. FINDINGS: The deep veins are normally compressible, and free of intraluminal thrombus. Color and pu lse Doppler demonstrate normal phasic intraluminal flow. There is normal augmentation response to di stal compression maneuver. Martell's cyst present measuring 5.3 x 1.5 x 2.3 cm. IMPRESSION: 1. No deep venous thrombosis identified within the right lower extremity. 2. Popliteal martell's cyst. Dictated by: Rikki ABARCA Interpreted: Benito Bridges MD on 11/15/2016 at 13:22 Approved by: Carroll Bridges M.D. on 11/15/2016 at 13:24
--- NOTE | 2016-11-15 13:41 | PCM.PNMED ---
Subjective Date of Service Nov 15, 2016 Subjective GASTROENTEROLOGY PROGRESS NOTE: Attendin Physician: Fay Lemus MD Resident Physician: Alisa Mcfarland DO No acute events overnight. H/H remains stable. Patient reports ongoing dizziness but states that this has improved since admission. Additionally she reports mild pain in her neck that she attributes to the nuclear monitoring technician hanging down and the comfort of the hospital bed. She otherwise is doing well. She was NPO for an abdominal ultrasound and has not yet eaten today. She reports that she is passing flatus but has not had a bowel movement. She denies fever, chills, difficulty breathing, chest pain, abdominal pain, nausea or vomiting. Per nursing, the patient somewhat anxious with ambulation due to the dizziness. Exam Vital Signs Vital Sign - Last Date Time Temp Pulse Resp B/P Pulse Ox O2 Delivery O2 Flow Rate FiO2 11/15/16 09:07 36.8 85 18 170/94 97 Room Air Intake and Output 11/14/16 11/14/16 11/15/16 Cumulative From/Thru 14:59 22:59 06:59 11/09/16 04:57 - 11/15/16 06:24 Intake Total 1547 ml 1356 ml 95232 ml Output Total 1000 ml 2400 ml 8700 ml Balance 547 ml -1044 ml 2047 ml Intake Oral 640 ml 400 ml 6880 ml IV Total 907 ml 956 ml 3267 ml Packed Cells 600 ml Output Urine Total 1000 ml 2400 ml 8700 ml # Voids 6 23 # Bowel Movements 7 Exam General: Elderly woman sitting up in bed, appears comfortable and in no acute distress. HEENT: Normocephalic, atraumatic, PERRLA, Mucous membranes moist/pink. Lungs: Clear to auscultation bilaterally with no crackles, wheezes, or rhonchi. Cardiovascular: Regular rate/rhythm. No murmurs/rubs/gallops Abdomen: Soft, nondistended, mild tenderness to palpation across lower abdomen. No masses. Hypoactive bowel tones. Skin: Pale, warm and dry without obvious rashes or ulcerations. Extremities without edema. Neurological: AOx3, no focal deficit. Normal speech IVs and Medications Medications Reviewed: Medications were reviewed in detail Lab and Diagnostics Laboratory Tests Test 11/15/16 02:05 White Blood Count 6.8th/mm3 (3.8-10.1) Red Blood Count 4.07mil/mm3 (3.90-5.20) Hemoglobin 9.8g/dL (12.0-15.6) Hematocrit 31.5% (35.0-46.0) Mean Corpuscular Volume 77.4fL (81-100) Mean Corpuscular Hemoglobin 24.1pg (27.0-35.0) Mean Corpuscular Hemoglobin Concent 31.1% (32.0-37.0) Red Cell Distribution Width 20.0% (12.3-15.4) Platelet Count 217bil/L (150-400) Neutrophils (%) (Auto) 72.1% (40-74) Lymphocytes (%) (Auto) 12.0% (14-46) Monocytes (%) (Auto) 12.3% (4-12) Eosinophils (%) (Auto) 3.1% (0-5) Basophils (%) (Auto) 0.4% (0-3) Prothrombin Time 10.4sec (8.1-12.5) Prothromb Time International Ratio 0.97ratio Sodium Level 138mEq/L (134-144) Potassium Level 3.4mEq/L (3.5-5.2) Chloride Level 106mEq/L (97-108) Carbon Dioxide Level 17mmol/L (18-29) Blood Urea Nitrogen 13mg/dL (8-27) Creatinine 0.81mg/dL (0.57-1.00) Estimat Glomerular Filtration Rate 97mL/min (>59) Glucose Level 107mg/dL (60-99) Calcium Level 8.3mg/dL (8.5-10.1) Magnesium Level 1.8mg/dL (1.6-2.6) Total Bilirubin 1.4mg/dL (0.0-1.2) Aspartate Amino Transf (AST/SGOT) 52U/L (0-50) Alanine Aminotransferase (ALT/SGPT) 57U/L (0-32) Alkaline Phosphatase 139U/L (25-165) Total Protein 5.3g/dL (6.4-8.4) Albumin 3.1g/dL (3.4-5.0) Result Diagram: 11/15/1620411/15/16204 X-Rays, CTs and MRIs 11/09/16 - CT ABDOMEN AND PELVIS WITH CONTRAST IMPRESSION: -No hematoma found, no trauma identified. -Aneurysmal dilatation is present at the middle third of the abdominal aorta which measures up to 3.4 x 3.8 cm in maximal axial dimensions, and also the proximal common iliac artery on the right measures up to 2 cm. -There is no sign of associated dissection or aneurysm leak. Approved by: Syed Crow M.D. on 11/09/2016 at 8:10 11/09/16 - X-RAY CHEST ONE VIEW, PORTABLE IMPRESSION: No acute cardiopulmonary disease. Approved by: Tree Ding M.D. on 11/09/2016 at 9:50 11/10/16 - X-RAY UPPER GI WITH BARIUM, AIR CONTRAST AND SMALL BOWEL FOLLOW- THROUGH IMPRESSION: -Normal upper GI series and small bowel follow-through. No source for anemia identified radiographically. -Atherosclerotic and mild aneurysmal change of the descending aorta redemonstrated. Approved by: Candis Fritz MD, PhD on 11/10/2016 at 15:57 11/13/16 - CT CHEST WITH CONTRAST IMPRESSION: 1. No metastatic disease in thorax. 2. Borderline sized mediastinal lymph nodes are nonspecific. 3. A 9 mm right thyroid nodule. Thyroid ultrasound is suggested for followup. 4. Bilateral renal cysts. 5. Colonic diverticulosis. Approved by: Bhanu Fernando M.D. on 11/13/2016 at 9:21 . Additional Diagnostics 11/12/16 - EGD IMPRESSION: 1. Multiple antral erosions. 2. Slightly irregular gastroesophageal junction. RECOMMENDATIONS: 1. Await biopsy results. 2. PPI daily. 3. Proceed to colonoscopy. <Electronically signed by Fay Lemus MD> 11/12/16204711/12/16 - COLONOSCOPY IMPRESSION: 1. Proximal transverse polyp. 2. Transverse polyp. 3. Distal transverse mass. RECOMMENDATIONS: 1. Await pathology results. 2. Surgical consultation. 3. Continue to hold anticoagulation. 4. Continue to follow H and H closely. <Electronically signed by Fay Lemus MD> 11/12/162047 Assessment & Plan 81-year-old female with a history of HTN, CAD, prior CVA, abdominal aortic aneurysm and GERD who presented to the ED with the complaint of increasing shortness of breath for the past three weeks. Admitted for further evaluation and management of anemia likely secondary to occult GI bleeding. Colon mass in distal transverse colon noted on colonoscopy. -Probable source for GI bleeding along with the multiple antral erosions noted on EGD. Patient presented with symptomatic anemia and guaiac positive stool. -GI series and small bowel follow-through were negative. -EGD and Colonoscopy on 11/12, results as above. -Monitor H/H closely, transfuse pRBCs as needed. -Awaiting biopsy results, GI will contact patient -Follow up with Dr. Portillo with General surgery, as outpatient -Continue to hold anticoagulation -Await biopsy results Iron Deficiency Anemia -Patient remains symptomatic but this is improving. No overt signs of bleeding. -Continue iron supplementation -Close monitoring of H&H -Transfuse PRBCs when necessary -Continue PPI Additional problems managed per primary medicine team. Sinus bradycardia, chronic. Chest pressure in patient with triple-vessel coronary disease Essential hypertension Chronic systolic heart failure Atrial fibrillation, paroxysmal, chronic Acute kidney injury Hyperlipidemia . GI Prophylaxis: Proton Pump Inhibitor VTE Prophylaxis: SCDs Resuscitation Status: CPR: Attempt Resuscitation Time spent 25 minutes Attending Statement pt seen and examined agree with resident physician note Alisa Mcfarland DO Nov 15, 2016 09:46 Farzana Reina MD Nov 15, 2016 14:53 Fay Lemus MD Nov 24, 2016 19:04 -Continue to hold anticoagulation Atrial fibrillation, paroxysmal, chronic, present on admission. Ongoing -Stopped Coumadin secondary to GI bleeding. INR yesterday 1.12 SANJUANITA, not present on admission. -Possibly secondary to perfusion deficit or BOB inhibitor -Continue to monitor Hyperlipidemia, present on admission. Ongoing -Atorvastatin Patient Status: Patient was admitted under inpatient status with expected length of stay greater than two midnights due to severity of presenting symptoms , risk of adverse event, and complexity of treatment plan. GI Prophylaxis: Proton Pump Inhibitor VTE Prophylaxis: SCDs Resuscitation Status: CPR: Attempt Resuscitation Time spent 30 alicia GI Prophylaxis: Proton Pump Inhibitor VTE Prophylaxis: SCDs Resuscitation Status: CPR: Attempt Resuscitation Time spent 25 minutes Alisa Mcfarland DO Nov 15, 2016 09:46 Farzana Reina MD Nov 15, 2016 14:53
--- NOTE | 2016-11-15 14:21 | DRSVH ---
PROCEDURE: US RENAL WITH ARTERIES DUPLEX DOPPLER SONOGRAM, LIMITED INDICATIONS: poorly controlled BP TECHNIQUE: Real time scanning was performed of both kidneys, followed by Color and pulsed Doppler in terrogation of the renal vessels. COMPARISON: None. FINDINGS: Suboptimal visualization of renal vessels do to overlying bowel gas and the patient's inab ility to hold breath. Aortic peak systolic velocity: 77 cm/s. There is mild aortic aneurysm measuring 3.1 cm. Right side: Beal-scale imaging: Kidney is 11.2 cm long; renal cortical thickness is 1.5 cm. No hydronephrosis. No nephrolithiasis. Renal cortex is normal in echogenicity. Multiple renal cysts are present bilat erally. No suspicious solid renal masses. Proximal renal artery peak systolic velocity: -cm/s. Not visualized Mid renal artery peak systolic velocity: 106 cm/s. Distal renal artery peak systolic velocity: - cm/s. Not visualized Renal vein: Patent, without thrombus. Peak renal/aortic ratio (RAR): 1.4. Left side: Beal-scale imaging: Kidney is 12.0 cm long; renal cortical thickness is 1.1 cm. No hydronephrosis. No nephrolithiasis. Renal cortex is normal in echogenicity. No suspicious solid renal masses. Proximal renal artery peak systolic velocity: 65 cm/s. Mid-renal artery peak systolic velocity: - cm/s. Not visualized Distal renal artery peak systolic velocity: - cm/s. Not visualized Renal vein: Patent, without thrombus. Peak renal/aortic ratio (RAR): 0.86. IMPRESSION: 1. Limited examination. No definitive renal artery stenosis based on the ultrasound criteria. If cli nical symptoms persist or clinical suspicion for pathology is high, radionuclide renogram with angiot ensin converting enzyme (captopril) challenge is suggested for further evaluation. 2. Multiple renal cysts. Dictated by: Bhanu Fernando M.D. on 11/15/2016 at 14:14 Transcribed by: KRISTEN on 11/15/2016 at 14:21 Approved by: Bhanu Fernando M.D. on 11/15/2016 at 17:21
[2016-11-15] MEDS ORDERED: NIFEdipine 30 mg ER24 Tablet PO ONE (14:30)
--- NOTE | 2016-11-15 14:42 | PCM.PNMED ---
Subjective Date of Service Nov 15, 2016 Subjective Patient did complain about some pain behind her posterior right knee. New. No swelling or redness noted of her lower leg. She Stilling is having some episodes of lightheadedness when she stands up. Exam Vital Signs Vital Sign - Last Date Time Temp Pulse Resp B/P Pulse Ox O2 Delivery O2 Flow Rate FiO2 11/15/16 13:29 69 178/85 11/15/16 13:19 37.0 22 97 Room Air Intake and Output 11/14/16 11/14/16 11/15/16 Cumulative From/Thru 15:00 23:00 07:00 11/09/16 04:57 - 11/15/16 06:24 Intake Total 1547 ml 1356 ml 71568 ml Output Total 1000 ml 2400 ml 8700 ml Balance 547 ml -1044 ml 2047 ml Intake Oral 640 ml 400 ml 6880 ml IV Total 907 ml 956 ml 3267 ml Packed Cells 600 ml Output Urine Total 1000 ml 2400 ml 8700 ml # Voids 6 23 # Bowel Movements 7 Exam Constitutional: Elderly female in no acute distress Head: Normocephalic medical Chest: Clear to auscultation Cor: Regular rate and rhythm S1-S2 without murmur Abdomen: Soft nontender bowel sounds present Shortness: No pedal edema. Examination of her right knee reveals minimal edema surrounding the patella. Lab and Diagnostics Result Diagram: 11/15/16 0205 11/15/16 0205 X-Rays, CTs and MRIs 11/09/16 - CT ABDOMEN AND PELVIS WITH CONTRAST IMPRESSION: -No hematoma found, no trauma identified. -Aneurysmal dilatation is present at the middle third of the abdominal aorta which measures up to 3.4 x 3.8 cm in maximal axial dimensions, and also the proximal common iliac artery on the right measures up to 2 cm. -There is no sign of associated dissection or aneurysm leak. Approved by: Syed Crow M.D. on 11/09/2016 at 8:10 11/09/16 - X-RAY CHEST ONE VIEW, PORTABLE IMPRESSION: No acute cardiopulmonary disease. Approved by: Tree Ding M.D. on 11/09/2016 at 9:50 11/10/16 - X-RAY UPPER GI WITH BARIUM, AIR CONTRAST AND SMALL BOWEL FOLLOW- THROUGH IMPRESSION: -Normal upper GI series and small bowel follow-through. No source for anemia identified radiographically. -Atherosclerotic and mild aneurysmal change of the descending aorta redemonstrated. Approved by: Candis Fritz MD, PhD on 11/10/2016 at 15:57 11/13/16 - CT CHEST WITH CONTRAST IMPRESSION: 1. No metastatic disease in thorax. 2. Borderline sized mediastinal lymph nodes are nonspecific. 3. A 9 mm right thyroid nodule. Thyroid ultrasound is suggested for followup. 4. Bilateral renal cysts. 5. Colonic diverticulosis. Approved by: Bhanu Fernando M.D. on 11/13/2016 at 9:21 . Additional Diagnostics 11/12/16 - EGD IMPRESSION: 1. Multiple antral erosions. 2. Slightly irregular gastroesophageal junction. RECOMMENDATIONS: 1. Await biopsy results. 2. PPI daily. 3. Proceed to colonoscopy. <Electronically signed by Fay Lemus MD> 11/12/16204711/12/16 - COLONOSCOPY IMPRESSION: 1. Proximal transverse polyp. 2. Transverse polyp. 3. Distal transverse mass. RECOMMENDATIONS: 1. Await pathology results. 2. Surgical consultation. 3. Continue to hold anticoagulation. 4. Continue to follow H and H closely. <Electronically signed by Fay Lemus MD> 11/12/162047 Assessment & Plan 81-year-old female with a history of HTN, CAD, prior CVA, abdominal aortic aneurysm and GERD who presented to the ED with the complaint of increasing shortness of breath for the past three weeks. Admitted for further evaluation and management of anemia likely secondary to occult GI bleeding. Colon mass in distal transverse colon noted on colonoscopy. -Probable source for GI bleeding along with the multiple antral erosions noted on EGD. Patient presented with symptomatic anemia and guaiac positive stool. -GI series and small bowel follow-through were negative. -EGD and Colonoscopy on 11/12, results as above. -Monitor H/H closely, transfuse pRBCs as needed. -Awaiting biopsy results, GI will contact patient -Follow up with Dr. Portillo with General surgery, as outpatient -Continue to hold anticoagulation -Await biopsy results Poorly controlled blood pressure, present on admission -Did add hydralazine to a regimen which think led to lightheadedness and tachycardia so this was DC'd today -Titrating up dosing of nifedipine XL Iron Deficiency Anemia -Patient remains symptomatic but this is improving. No overt signs of bleeding. -Continue iron supplementation -Close monitoring of H&H -Transfuse PRBCs when necessary -Continue PPI Additional problems managed per primary medicine team. Sinus bradycardia, chronic. Chest pressure in patient with triple-vessel coronary disease Essential hypertension Chronic systolic heart failure Atrial fibrillation, paroxysmal, chronic Acute kidney injury Hyperlipidemia . GI Prophylaxis: Proton Pump Inhibitor VTE Prophylaxis: SCDs Resuscitation Status: CPR: Attempt Resuscitation Time spent 25 minutes Farzana Reina MD Nov 15, 2016 14:42
--- NOTE | 2016-11-15 18:40 | NUR ---
shoulder pain- pt c/o pain in right shoulder. Tried heat packs and rest. Medicated with tylenol. heat didn't work, attempted ice to help with pain. MD notified, EKG ordered.
[2016-11-16] VITALS (7 sets, daily range): BP systolic 97–139; BP diastolic 56–66; PULSE 61–67; RESP 16–18; O2SAT 92–96
--- NOTE | 2016-11-16 05:46 | NUR ---
Blood Pressure Patient's blood pressure stable throughout shift, no hypertensive episodes. Patient able to rest, denies pain except for neck/knee cramping at HS. VSS, tele SR 80s. This AM, patient specifically requested that all prescriptions be filled through [place] pharmacy instead of prior listed pharmacy; changed in med rec, and will report to oncoming team as well.
[2016-11-16] MEDS: Pantoprazole 40 mg ER24 Tablet PO SCH (07:44)
[2016-11-16] MEDS: NIFEdipine 30 mg ER24 Tablet PO SCH (07:46)
[2016-11-16] MEDS: 0.9% Sodium Chloride 250 ML IV SCH (11:15)
--- NOTE | 2016-11-16 11:29 | NUR ---
Evaluation completed. Please go to "Notes" then click on "Assessments and Notes" (bottom left corner of screen). Then select appropriate discipline tab on top of screen.
--- NOTE | 2016-11-16 12:22 | PATH ---
SURGICAL PATHOLOGY Attending Physician:Christine Willis CASE STATUS: Signed Out PATIENT NAME: SOPHIE SCOTT PID: [id number] : 1935 DATE COLLECTED:11/12/2016 00:00 SPECIMEN: 1: Gastric, Biopsy 2: Colon, Polyp 3: Colon, Polyp 4: Colon, Biopsy CLINICAL HISTORY: 1). GASTRIC BIOPSY RULE OUT H PYLORI 2). TRANSVERSE PROXIMAL POLYP 3). TRANSVERSE POLYP 4). DISTAL TRANSVERSE MASS BIOPSY FINAL DIAGNOSIS: 1. Stomach, Biopsies: Antral and body-type mucosa with no diagnostic abnormality. Negative for Helicobacter by immunohistochemistry. Negative for intestinal metaplasia. Negative for dysplasia or malignancy. 2. Proximal Transverse Colon, Polyp, Biopsy: Tubular adenoma with erosion. See comment. 3. Transverse Colon, Polyp, Biopsy: Tubular adenoma. 4. Distal Transverse Colon, Mass, Biopsy: Tubular adenoma with high-grade dysplasia, in a background of erosion and active inflammation. See comment. No evidence of invasive carcinoma. NOTE: Part 2: The proximal transverse colon polyp shows one of three fragments with adenomatous dysplasia with crowded glands and ulceration. The glands are not cribriform but show cytologic and architectural atypia approaching, but not diagnostic for high-grade dysplasia. There is no evidence of an invasive carcinoma. Additional levels were examined. Part 4: The endoscopic appearance of a mass is noted. The biopsy fragments show tubular adenoma and separate cribriform atypical glands with high-grade cytologic dysplasia at the surface of the colonic mucosa. There is no evidence of invasive carcinoma in the sections examined. As part of routine quality assurance supervisor trim, this case was also reviewed by Dr. Tree Harrison, who agrees with the above interpretations. Dr. Aguirre discussed the findings with Dr. Lemus on 11/16/2016. Per Dr. Lemus, the patient has been referred for surgical resection. GROSS DESCRIPTION: The specimens are received in formalin, labeled with the patient's name, and sublabeled as the following: (1) gastric Bx; (2) proximal transverse polyp; (3) transverse polyp; (4) distal transverse mass Bx. (1) The specimen consists of multiple fragments of melendrez glistening semitranslucent tissue (0.7 x 0.3 x 0.1 cm in aggregate). Section code: (1A) tissue. Specimen entirely submitted. (2) The specimen consists of multiple fragments of melendrez glistening semitranslucent tissue (1.1 x 0.4 x 0.1 cm in aggregate). Section code: (2A) tissue. Specimen entirely submitted. (3) The specimen consists of a melendrez rubbery sessile polyp (0.8 x 0.5 x 0.4 cm) with a azevedo-white homogenous cut surface. Ink code: black-resection margin. Section code: (3A) polyp, bisected. Specimen is entirely submitted. (4) The specimen consists of multiple fragments of azevedo-white glistening translucent tissue (0.7 x 0.3 x 0.1 cm in aggregate). Section code: (4A) tissue. Specimen entirely submitted. 11/13/16 ICD-9 CODES: CPT CODES: 1: 50814, 00463 2: 32867 3: 67174 4: 66817 Electronically Signed Out Letitia Aguirre MD [facility]ology [facility] [address], [place] [address] Technical component performed at [facility], [facility] [address], [place], [address]
--- NOTE | 2016-11-16 12:59 | NUR ---
P: Chest Pain I: Pt denies chest pain or SOB. Taking diet and fluids well. Up to bathroom with one assist. PT came and did their evaluation. NSR. Alert and oriented x3. Awaiting discharge orders. No signs of bleeding noted. Room air with sats stable. Pt talked with her son on the phone about possible discharge.Saline lock patent without redness or swelling at the site. E: Stable S: Alert and oriented. Uses call light appropriately. Up with assist only. Frequent rounding.
[2016-11-16] MEDS ORDERED: LISI40TA PO (14:10)
[2016-11-16] MEDS ORDERED: NIFE30TA92 PO (14:10)
--- NOTE | 2016-11-16 14:56 | NUR ---
P: Chest Pain I: Discharge instructions and RX given to pt and her son is at the bedside. Saline lock dc'd with catheter intact. Tele box removed. Pt discharged via wheelchair accompanied by Jackie Russell. E: Stable S: Alert and oriented. Indicated understanding of discharge instructions.
--- NOTE | 2016-11-16 15:37 | NUR ---
Social Work: Discharge/Multidisciplinary Rounds D: Pt discussed in multidisciplinary rounds; the patient is medically stable for discharge. PT has evaluated the patient. They are recommending pt discharge home with no supportive services. had previously placed HH order for CM. BRAKE SPECIALIST requested that this be canceled as she no longer is wanting the patient to have this. BRAKE SPECIALIST met with the patient at bedside to review discharge plan. Patient states that she has no concerns about her discharge home. BRAKE SPECIALIST inquired about her previous concerns about caring for her son. She states that she no longer is worried about this and that she is "getting around just fine." The patient denies any other needs at this time. BRAKE SPECIALIST reviewed her follow up appointments outlined on her discharge instructions. Pt to follow up with Dr. Portillo on Nov [address] Spivey On Nov 23 at 10:30am. BRAKE SPECIALIST has attempted multiple times to contact the patient's son to confirm that a home discharge is a safe plan. Son has not returned any phone calls from case management. A: Pt who lives at home; pt's son lives with her. P: Pt to discharge home via POV and no further sw needs. ANUSHKA Chavez
== END 2016-11-16 14:40 | disposition home or self-care (01) | DRG 378 ==
LOC: SED 04:55 → MPC 07:48 → PCC 08:30
PROVIDERS: ADMIT Internal Medicine; ATTEND Hospitalist
PROC: 30233N1 Transfusion of Nonautologous Red Blood Cells into Peripheral Vein, Percutaneous Approach (ICD-10-PCS; principal; 2016-11-09)
PROC: 30233N1 Transfusion of Nonautologous Red Blood Cells into Peripheral Vein, Percutaneous Approach (ICD-10-PCS; 2016-11-10)
PROC: 0DBL8ZX Excision of Transverse Colon, Via Natural or Artificial Opening Endoscopic, Diagnostic (ICD-10-PCS; 2016-11-12)
PROC: 0DB68ZX Excision of Stomach, Via Natural or Artificial Opening Endoscopic, Diagnostic (ICD-10-PCS; 2016-11-12 10:15)
DX: K92.1 Melena (principal); I50.22 Chronic systolic (congestive) heart failure; D62 Acute posthemorrhagic anemia; N17.9 Acute kidney failure, unspecified; D12.3 Benign neoplasm of transverse colon; I10 Essential (primary) hypertension; I25.10 Atherosclerotic heart disease of native coronary artery without angina pectoris; I48.0 Paroxysmal atrial fibrillation; E78.5 Hyperlipidemia, unspecified; F17.210 Nicotine dependence, cigarettes, uncomplicated; Z86.73 Personal history of transient ischemic attack (TIA), and cerebral infarction without residual deficits; Z79.01 Long term (current) use of anticoagulants; I71.4 Abdominal aortic aneurysm, without rupture; K21.9 Gastro-esophageal reflux disease without esophagitis